=== PATIENT | male | born 1955 | race Caucasian/White ===

== ENCOUNTER 2020-09-20 08:27 | Outpatient (REF) | payer OTHER, SELFPAY ==
[2020-09-20 10:17] LABS: MANUAL DIFF FLAG NO
[2020-09-20 10:26] LABS: Basophils Absolute Auto 0.1 X10*3/uL (0.0-0.2); Basophils Percent Auto 0.6 % (0-2); Eosinophils Percent Auto 11.8 % (0-4); Hematocrit 48.4 % (42-52); Hemoglobin 16.1 g/dl (14.0-18.0); Imm Gran Abs Auto 0.05 X10*3/uL (0.00-0.03); Imm Gran Pct Auto 0.6 % (0.0-0.4); Mean Corpuscular HGB Conc 33.3 g/dl (31.0-36.0); Mean Corpuscular Hemoglobin 29.8 pg (27.0-33.0); Mean Corpuscular Volume 89.5 fL (80-98); Mean Platelet Volume 9.7 fL (9.4-12.4); Monocytes Absolute Auto 0.5 X10*3/uL (0.1-1.2); Monocytes Percent Auto 6.4 % (2-11); Neutrophils Absolute Auto 4.6 X10*3/uL (2.0-8.3); Neutrophils Percent Auto 56.6 % (45-73); Platelet Count 252 X10*3/uL (160-400); Red Blood Count 5.41 X10*6/uL (4.60-5.80); Red Cell Distribution Width 12.8 % (11.0-16.0); White Blood Count 8.1 X10*3/uL (4.8-10.8)
[2020-09-20 11:06] LABS: Alanine Aminotransferase 19 U/L (0-40); Albumin Level 4.3 g/dL (3.5-5.0); Alkaline Phosphatase 97 U/L (39-117); Anion Gap 13 (12-20); Aspartate Amino Transferase 14 U/L (5-37); Bilirubin Total 0.7 mg/dL (0.0-1.0); Blood Urea Nitrogen 10 mg/dL (9-16); Calcium 8.6 mg/dL (8.4-10.2); Carbon Dioxide 28 mmol/L (22-29); Chloride 101 mmol/L (96-108); Cholesterol 173 mg/dL; Estimated Glomerular Filt Rate > 60; Glucose Fasting 83 mg/dL (60-99); HDL Cholesterol 42 mg/dL; LDL Cholesterol Calculated 106 mg/dl; Potassium 4.5 mmol/l (3.3-5.1); Sodium 137 mmol/L (135-145); Triglycerides 128 mg/dL
[2020-09-20 11:28] LABS: Prostate Specific Antigen 3.32 ng/mL (<0.05-4.0)
== END 2020-09-20 08:28 | disposition home or self-care (01) ==
LOC: HO.10HDL 08:27
PROVIDERS: Visit Provider Internal Medicine Medical Oncology
DX: E78.2 Mixed hyperlipidemia (principal); R10.13 Epigastric pain; E66.9 Obesity, unspecified
CPT/HCPCS: 36415; 80053; 80061; 84153; 85025

== ENCOUNTER → 2020-11-13 13:58 | Outpatient (BNVA) | payer OTHER, SELFPAY | PROVIDERS: PCP Internal Medicine Medical Oncology; Visit Provider Orthopaedic Surgery | DX: M95.8 Other specified acquired deformities of musculoskeletal system (principal); M67.919 Unspecified disorder of synovium and tendon, unspecified shoulder | CPT/HCPCS: 20610; J1100 ==

== ENCOUNTER 2021-01-17 09:37 | Outpatient (REF) | payer OTHER, SELFPAY ==
[2021-01-17 10:05] LABS: MANUAL DIFF FLAG NO
[2021-01-17 10:17] LABS: Basophils Absolute Auto 0.1 X10*3/uL (0.0-0.2); Basophils Percent Auto 0.8 % (0-2); Eosinophils Absolute Auto 0.8 X10*3/uL (0.0-0.4); Eosinophils Percent Auto 11.5 % (0-4); Hematocrit 48.3 % (42-52); Imm Gran Abs Auto 0.03 X10*3/uL (0.00-0.03); Imm Gran Pct Auto 0.4 % (0.0-0.4); Lymphocytes Absolute Auto 1.6 X10*3/uL (1.2-4.9); Lymphocytes Percent Auto 22.9 % (20-40); Mean Corpuscular HGB Conc 33.1 g/dl (31.0-36.0); Mean Corpuscular Hemoglobin 28.9 pg (27.0-33.0); Mean Corpuscular Volume 87.2 fL (80-98); Monocytes Absolute Auto 0.5 X10*3/uL (0.1-1.2); Monocytes Percent Auto 7.1 % (2-11); Neutrophils Absolute Auto 4.1 X10*3/uL (2.0-8.3); Neutrophils Percent Auto 57.3 % (45-73); Platelet Count 239 X10*3/uL (160-400); Red Blood Count 5.54 X10*6/uL (4.60-5.80); Red Cell Distribution Width 12.9 % (11.0-16.0); White Blood Count 7.2 X10*3/uL (4.8-10.8)
[2021-01-17 10:57] LABS: Alanine Aminotransferase 21 U/L (0-40); Albumin Level 4.4 g/dL (3.5-5.0); Alkaline Phosphatase 96 U/L (39-117); Anion Gap 13 (12-20); Aspartate Amino Transferase 16 U/L (5-37); Bilirubin Total 1.2 mg/dL (0.0-1.0); Blood Urea Nitrogen 11 mg/dL (9-16); Carbon Dioxide 25 mmol/L (22-29); Chloride 105 mmol/L (96-108); Cholesterol 153 mg/dL; Estimated Glomerular Filt Rate 59; Glucose Fasting 89 mg/dL (60-99); HDL Cholesterol 39 mg/dL; LDL Cholesterol Calculated 93 mg/dl; Potassium 4.3 mmol/L (3.3-5.1); Sodium 139 mmol/L (135-145); Triglycerides 106 mg/dL
== END 2021-01-17 09:38 | disposition home or self-care (01) ==
LOC: HO.10HDL 09:37
PROVIDERS: Visit Provider Internal Medicine Medical Oncology
DX: J45.909 Unspecified asthma, uncomplicated (principal); E78.2 Mixed hyperlipidemia; K57.92 Diverticulitis of intestine, part unspecified, without perforation or abscess without bleeding
CPT/HCPCS: 36415; 80053; 80061; 85025

== ENCOUNTER 2021-05-16 09:35 | Outpatient (REF) | payer OTHER, SELFPAY ==
[2021-05-16 10:24] LABS: MANUAL DIFF FLAG NO
[2021-05-16 10:31] LABS: Basophils Percent Auto 0.4 % (0-2); Eosinophils Absolute Auto 0.7 X10*3/uL (0.0-0.4); Eosinophils Percent Auto 9.5 % (0-4); Hematocrit 47.3 % (42-52); Hemoglobin 15.8 g/dl (14.0-18.0); Imm Gran Abs Auto 0.02 X10*3/uL (0.00-0.03); Imm Gran Pct Auto 0.3 % (0.0-0.4); Lymphocytes Absolute Auto 1.5 X10*3/uL (1.2-4.9); Lymphocytes Percent Auto 19.7 % (20-40); Mean Corpuscular HGB Conc 33.4 g/dl (31.0-36.0); Mean Corpuscular Hemoglobin 29.8 pg (27.0-33.0); Mean Corpuscular Volume 89.1 fL (80-98); Mean Platelet Volume 10.4 fL (9.4-12.4); Monocytes Absolute Auto 0.6 X10*3/uL (0.1-1.2); Monocytes Percent Auto 7.5 % (2-11); Neutrophils Absolute Auto 4.7 X10*3/uL (2.0-8.3); Neutrophils Percent Auto 62.6 % (45-73); Platelet Count 238 X10*3/uL (160-400); Red Blood Count 5.31 X10*6/uL (4.60-5.80); Red Cell Distribution Width 13.2 % (11.0-16.0); White Blood Count 7.5 X10*3/uL (4.8-10.8)
[2021-05-16 10:53] LABS: Alanine Aminotransferase 17 U/L (0-40); Albumin Level 4.3 g/dL (3.5-5.0); Alkaline Phosphatase 92 U/L (39-117); Anion Gap 13 (12-20); Aspartate Amino Transferase 14 U/L (5-37); Bilirubin Total 0.8 mg/dL (0.0-1.0); Blood Urea Nitrogen 9 mg/dL (9-16); Calcium 9.4 mg/dL (8.4-10.2); Carbon Dioxide 26 mmol/L (22-29); Chloride 107 mmol/L (96-108); Cholesterol 148 mg/dL; Estimated Glomerular Filt Rate 53; Glucose Fasting 90 mg/dL (60-99); HDL Cholesterol 46 mg/dL; LDL Cholesterol Calculated 86 mg/dl; Potassium 4.5 mmol/L (3.3-5.1); Sodium 141 mmol/L (135-145); Total Protein 6.9 g/dL (6.5-8.0); Triglycerides 82 mg/dL
== END 2021-05-16 09:36 | disposition home or self-care (01) ==
LOC: HO.10HDL 09:35
PROVIDERS: PCP Internal Medicine Medical Oncology; Visit Provider Internal Medicine Medical Oncology
DX: J45.909 Unspecified asthma, uncomplicated (principal); R10.13 Epigastric pain; G47.30 Sleep apnea, unspecified; E78.2 Mixed hyperlipidemia; K57.92 Diverticulitis of intestine, part unspecified, without perforation or abscess without bleeding
CPT/HCPCS: 36415; 80053; 80061; 85025

== ENCOUNTER 2021-09-14 08:13 | Outpatient (REF) | payer OTHER, SELFPAY ==
[2021-09-14 10:13] LABS: MANUAL DIFF FLAG NO
[2021-09-14 10:17] LABS: Basophils Percent Auto 0.4 % (0-2); Eosinophils Absolute Auto 0.4 X10*3/uL (0.0-0.4); Eosinophils Percent Auto 5.3 % (0-4); Hematocrit 44.1 % (42.0-52.0); Hemoglobin 14.4 g/dl (14.0-18.0); Imm Gran Abs Auto 0.04 X10*3/uL (0.00-0.03); Imm Gran Pct Auto 0.5 % (0.0-0.4); Lymphocytes Absolute Auto 1.6 X10*3/uL (1.2-4.9); Lymphocytes Percent Auto 20.3 % (20-40); Mean Corpuscular HGB Conc 32.7 g/dl (31.0-36.0); Mean Corpuscular Hemoglobin 29.3 pg (27.0-33.0); Mean Corpuscular Volume 89.6 fL (80.0-98.0); Mean Platelet Volume 9.9 fL (9.4-12.4); Monocytes Absolute Auto 0.5 X10*3/uL (0.1-1.2); Monocytes Percent Auto 6.7 % (2-11); Neutrophils Absolute Auto 5.3 x10*3/uL (2.0-8.3); Neutrophils Percent Auto 66.8 % (45-73); Platelet Count 218 X10*3/uL (160-400); Red Blood Count 4.92 X10*6/uL (4.60-5.80); Red Cell Distribution Width 13.2 % (11.0-16.0); White Blood Count 7.9 X10*3/uL (4.8-10.8)
[2021-09-14 10:55] LABS: Alanine Aminotransferase 37 U/L (0-40); Albumin Level 4.1 g/dL (3.5-5.0); Alkaline Phosphatase 86 U/L (39-117); Anion Gap 12 (12-20); Aspartate Amino Transferase 19 U/L (5-37); Bilirubin Total 0.6 mg/dL (0.0-1.0); Blood Urea Nitrogen 15 mg/dL (9-16); Calcium 8.6 mg/dL (8.4-10.2); Carbon Dioxide 26 mmol/L (22-29); Chloride 106 mmol/L (96-108); Cholesterol 182 mg/dL; Estimated Glomerular Filt Rate > 60; Glucose Fasting 89 mg/dL (60-99); HDL Cholesterol 46 mg/dL; LDL Cholesterol Calculated 115 mg/dl; Potassium 3.7 mmol/L (3.3-5.1); Sodium 140 mmol/L (135-145); Total Protein 6.6 g/dL (6.5-8.0); Triglycerides 108 mg/dL
== END 2021-09-14 08:14 | disposition home or self-care (01) ==
LOC: HO.10HDL 08:13
PROVIDERS: Visit Provider Internal Medicine Medical Oncology
DX: E66.9 Obesity, unspecified (principal); E78.2 Mixed hyperlipidemia
CPT/HCPCS: 36415; 80053; 80061; 85025

== ENCOUNTER 2022-01-16 07:49 | Outpatient (REF) | payer OTHER, SELFPAY ==
[2022-01-16 10:24] LABS: MANUAL DIFF FLAG NO
[2022-01-16 10:27] LABS: Basophils Absolute Auto 0.1 X10*3/uL (0.0-0.2); Basophils Percent Auto 0.7 % (0-2); Eosinophils Percent Auto 13.8 % (0-4); Hemoglobin 15.7 g/dl (14.0-18.0); Imm Gran Abs Auto 0.02 X10*3/uL (0.00-0.03); Imm Gran Pct Auto 0.3 % (0.0-0.4); Lymphocytes Absolute Auto 1.5 X10*3/uL (1.2-4.9); Mean Corpuscular Hemoglobin 28.9 pg (27.0-33.0); Mean Corpuscular Volume 90.1 fL (80.0-98.0); Mean Platelet Volume 10.1 fL (9.4-12.4); Monocytes Absolute Auto 0.6 X10*3/uL (0.1-1.2); Monocytes Percent Auto 8.1 % (2-11); Neutrophils Absolute Auto 4.1 x10*3/uL (2.0-8.3); Neutrophils Percent Auto 57.1 % (45-73); Platelet Count 237 X10*3/uL (160-400); Red Blood Count 5.44 X10*6/uL (4.60-5.80); Red Cell Distribution Width 13.3 % (11.0-16.0); White Blood Count 7.3 X10*3/uL (4.8-10.8)
[2022-01-16 11:02] LABS: Alanine Aminotransferase 30 U/L (0-40); Albumin Level 4.3 g/dL (3.5-5.0); Alkaline Phosphatase 97 U/L (39-117); Anion Gap 14 (12-20); Aspartate Amino Transferase 17 U/L (5-37); Bilirubin Total 0.5 mg/dL (0.0-1.0); Blood Urea Nitrogen 12 mg/dL (9-16); Calcium 9.4 mg/dL (8.4-10.2); Carbon Dioxide 27 mmol/L (22-29); Chloride 105 mmol/L (96-108); Cholesterol 149 mg/dL; Estimated Glomerular Filt Rate 53; Glucose Fasting 82 mg/dL (60-99); HDL Cholesterol 42 mg/dL; LDL Cholesterol Calculated 92 mg/dl; Potassium 4.9 mmol/L (3.3-5.1); Sodium 141 mmol/L (135-145); Triglycerides 79 mg/dL
[2022-01-17 15:34] LABS: PSA,Total (Free>4and<10) 2.43 ng/mL (0.00-4.00)
== END 2022-01-16 07:50 | disposition home or self-care (01) ==
LOC: HO.10HDL 07:49
PROVIDERS: Visit Provider Internal Medicine Medical Oncology
DX: E78.2 Mixed hyperlipidemia (principal); E66.9 Obesity, unspecified; N40.0 Benign prostatic hyperplasia without lower urinary tract symptoms; Z12.5 Encounter for screening for malignant neoplasm of prostate
CPT/HCPCS: 36415; 80053; 80061; 84153; 85025

== ENCOUNTER 2022-06-12 08:14 | Outpatient (REF) | payer OTHER, SELFPAY ==
[2022-06-12 10:51] LABS: MANUAL DIFF FLAG NO
[2022-06-12 11:02] LABS: Basophils Absolute Auto 0.1 X10*3/uL (0.0-0.2); Basophils Percent Auto 0.8 % (0-2); Eosinophils Absolute Auto 0.7 X10*3/uL (0.0-0.4); Eosinophils Percent Auto 10.8 % (0-4); Hematocrit 48.2 % (42.0-52.0); Hemoglobin 15.9 g/dl (14.0-18.0); Imm Gran Abs Auto 0.03 X10*3/uL (0.00-0.03); Imm Gran Pct Auto 0.5 % (0.0-0.4); Lymphocytes Absolute Auto 1.6 X10*3/uL (1.2-4.9); Lymphocytes Percent Auto 23.6 % (20-40); Mean Corpuscular Hemoglobin 29.5 pg (27.0-33.0); Mean Corpuscular Volume 89.4 fL (80.0-98.0); Mean Platelet Volume 10.4 fL (9.4-12.4); Monocytes Absolute Auto 0.6 X10*3/uL (0.1-1.2); Monocytes Percent Auto 8.3 % (2-11); Neutrophils Absolute Auto 3.7 x10*3/uL (2.0-8.3); Platelet Count 207 X10*3/uL (160-400); Red Blood Count 5.39 X10*6/uL (4.60-5.80); Red Cell Distribution Width 13.8 % (11.0-16.0); White Blood Count 6.7 X10*3/uL (4.8-10.8)
[2022-06-12 11:13] LABS: Alanine Aminotransferase 20 U/L (0-40); Albumin Level 4.3 g/dL (3.5-5.0); Alkaline Phosphatase 98 U/L (39-117); Anion Gap 14 (12-20); Aspartate Amino Transferase 15 U/L (5-37); Bilirubin Total 0.7 mg/dL (0.0-1.0); Blood Urea Nitrogen 10 mg/dL (9-16); Carbon Dioxide 26 mmol/L (22-29); Chloride 105 mmol/L (96-108); Cholesterol 182 mg/dL; Estimated Glomerular Filt Rate > 60; Glucose Fasting 90 mg/dL (60-99); HDL Cholesterol 45 mg/dL; LDL Cholesterol Calculated 117 mg/dl; Potassium 4.4 mmol/L (3.3-5.1); Sodium 141 mmol/L (135-145); Triglycerides 101 mg/dL
[2022-06-12 11:34] LABS: Prostate Specific Antigen 2.59 ng/mL (<0.05-4.0)
== END 2022-06-12 08:15 | disposition home or self-care (01) ==
LOC: HO.10HDL 08:14
PROVIDERS: Visit Provider Internal Medicine Medical Oncology
DX: Z12.5 Encounter for screening for malignant neoplasm of prostate (principal); E78.2 Mixed hyperlipidemia; E66.9 Obesity, unspecified; N40.0 Benign prostatic hyperplasia without lower urinary tract symptoms
CPT/HCPCS: 36415; 80053; 80061; 84153; 85025

== ENCOUNTER 2023-01-03 08:01 | Outpatient (REF) | payer OTHER, SELFPAY ==
[2023-01-03 11:16] LABS: MANUAL DIFF FLAG NO
[2023-01-03 11:55] LABS: Basophils Absolute Auto 0.1 X10*3/uL (0.0-0.2); Basophils Percent Auto 0.7 % (0-2); Eosinophils Absolute Auto 0.8 X10*3/uL (0.0-0.4); Eosinophils Percent Auto 9.3 % (0-4); Hemoglobin 14.9 g/dl (14.0-18.0); Imm Gran Abs Auto 0.03 X10*3/uL (0.00-0.03); Imm Gran Pct Auto 0.3 % (0.0-0.4); Lymphocytes Absolute Auto 2.1 X10*3/uL (1.2-4.9); Lymphocytes Percent Auto 24.5 % (20-40); Mean Corpuscular HGB Conc 32.4 g/dl (31.0-36.0); Mean Corpuscular Hemoglobin 29.2 pg (27.0-33.0); Mean Corpuscular Volume 90.2 fL (80.0-98.0); Mean Platelet Volume 10.4 fL (9.4-12.4); Monocytes Absolute Auto 0.7 X10*3/uL (0.1-1.2); Monocytes Percent Auto 7.5 % (2-11); Neutrophils Percent Auto 57.7 % (45-73); Platelet Count 212 X10*3/uL (160-400); Red Cell Distribution Width 13.5 % (11.0-16.0); White Blood Count 8.7 X10*3/uL (4.8-10.8)
[2023-01-03 12:41] LABS: Alanine Aminotransferase 20 U/L (0-40); Albumin Level 3.9 g/dL (3.5-5.0); Alkaline Phosphatase 81 U/L (39-117); Anion Gap 12 (12-20); Aspartate Amino Transferase 12 U/L (5-37); Bilirubin Total 0.8 mg/dL (0.0-1.0); Blood Urea Nitrogen 13 mg/dL (9-16); Calcium 8.7 mg/dL (8.4-10.2); Carbon Dioxide 29 mmol/L (22-29); Chloride 105 mmol/L (96-108); Cholesterol 158 mg/dL; Estimated Glomerular Filt Rate > 60; Glucose Fasting 76 mg/dL (60-99); HDL Cholesterol 49 mg/dL; LDL Cholesterol Calculated 89 mg/dl; Potassium 3.9 mmol/L (3.3-5.1); Prostate Specific Antigen 3.14 ng/mL (<0.05-4.0); Sodium 142 mmol/L (135-145); Total Protein 6.2 g/dL (6.5-8.0); Triglycerides 101 mg/dL
== END 2023-01-03 08:02 | disposition home or self-care (01) ==
LOC: HO.10HDL 08:01
PROVIDERS: Visit Provider Internal Medicine Medical Oncology
DX: Z13.89 Encounter for screening for other disorder (principal)
CPT/HCPCS: 36415; 80053; 80061; 84153; 85025

== ENCOUNTER 2023-09-11 07:57 | Outpatient (REF) | payer OTHER, SELFPAY ==
[2023-09-11 10:33] LABS: MANUAL DIFF FLAG NO
[2023-09-11 10:38] LABS: Basophils Absolute Auto 0.1 X10*3/uL (0.0-0.2); Basophils Percent Auto 0.6 % (0-2); Eosinophils Absolute Auto 0.4 X10*3/uL (0.0-0.4); Eosinophils Percent Auto 4.9 % (0-4); Hematocrit 47.5 % (42.0-52.0); Hemoglobin 15.3 g/dl (14.0-18.0); Imm Gran Abs Auto 0.02 X10*3/uL (0.00-0.03); Imm Gran Pct Auto 0.3 % (0.0-0.4); Lymphocytes Absolute Auto 1.9 X10*3/uL (1.2-4.9); Mean Corpuscular HGB Conc 32.2 g/dl (31.0-36.0); Mean Corpuscular Hemoglobin 28.7 pg (27.0-33.0); Mean Corpuscular Volume 89.1 fL (80.0-98.0); Mean Platelet Volume 9.9 fL (9.4-12.4); Monocytes Absolute Auto 0.6 X10*3/uL (0.1-1.2); Monocytes Percent Auto 7.3 % (2-11); Neutrophils Percent Auto 62.9 % (45-73); Platelet Count 251 X10*3/uL (160-400); Red Blood Count 5.33 X10*6/uL (4.60-5.80); Red Cell Distribution Width 13.6 % (11.0-16.0); White Blood Count 7.9 X10*3/uL (4.8-10.8)
[2023-09-11 10:52] LABS: Alanine Aminotransferase 15 U/L (0-40); Albumin Level 4.2 g/dL (3.5-5.0); Alkaline Phosphatase 99 U/L (39-117); Anion Gap 11 (12-20); Aspartate Amino Transferase 12 U/L (5-37); Bilirubin Total 0.8 mg/dL (0.0-1.0); Blood Urea Nitrogen 11 mg/dL (9-16); Calcium 9.4 mg/dL (8.4-10.2); Carbon Dioxide 30 mmol/L (22-29); Chloride 104 mmol/L (96-108); Cholesterol 171 mg/dL (<200); Estimated Glomerular Filt Rate > 60; Glucose Fasting 85 mg/dL (60-99); HDL Cholesterol 42 mg/dL (>40); LDL Cholesterol Calculated 107 mg/dL (<100); Potassium 4.4 mmol/L (3.3-5.1); Sodium 141 mmol/L (135-145); Total Protein 7.4 g/dL (6.5-8.0); Triglycerides 111 mg/dL (<150)
== END 2023-09-11 07:58 | disposition home or self-care (01) ==
LOC: HO.10HDL 07:57
PROVIDERS: Visit Provider Internal Medicine Medical Oncology
DX: E78.2 Mixed hyperlipidemia (principal); E66.9 Obesity, unspecified
CPT/HCPCS: 36415; 80053; 80061; 85025

== ENCOUNTER 2024-01-22 09:43 | Outpatient (REF) | payer MEDICARE, SELFPAY ==
[2024-01-22 11:05] LABS: MANUAL DIFF FLAG NO
[2024-01-22 11:15] LABS: Basophils Absolute Auto 0.1 X10*3/uL (0.0-0.2); Basophils Percent Auto 0.8 % (0-2); Eosinophils Absolute Auto 0.5 X10*3/uL (0.0-0.4); Eosinophils Percent Auto 6.6 % (0-4); Hemoglobin 16.1 g/dl (14.0-18.0); Imm Gran Abs Auto 0.03 X10*3/uL (0.00-0.03); Imm Gran Pct Auto 0.4 % (0.0-0.4); Lymphocytes Absolute Auto 1.7 X10*3/uL (1.2-4.9); Lymphocytes Percent Auto 21.8 % (20-40); Mean Corpuscular HGB Conc 34.3 g/dl (31.0-36.0); Mean Corpuscular Hemoglobin 29.2 pg (27.0-33.0); Mean Corpuscular Volume 85.1 fL (80.0-98.0); Mean Platelet Volume 9.7 fL (9.4-12.4); Monocytes Absolute Auto 0.6 X10*3/uL (0.1-1.2); Monocytes Percent Auto 7.6 % (2-11); Neutrophils Absolute Auto 4.9 x10*3/uL (2.0-8.3); Neutrophils Percent Auto 62.8 % (45-73); Platelet Count 272 X10*3/uL (160-400); Red Blood Count 5.52 X10*6/uL (4.60-5.80); Red Cell Distribution Width 12.7 % (11.0-16.0); White Blood Count 7.8 X10*3/uL (4.8-10.8)
[2024-01-22 11:22] LABS: Alanine Aminotransferase 18 U/L (0-40); Albumin Level 4.3 g/dL (3.5-5.0); Alkaline Phosphatase 105 U/L (39-117); Anion Gap 16 (12-20); Aspartate Amino Transferase 14 U/L (5-37); Bilirubin Total 0.7 mg/dL (0.0-1.0); Blood Urea Nitrogen 14 mg/dL (9-16); Calcium 9.4 mg/dL (8.4-10.2); Carbon Dioxide 23 mmol/L (22-29); Chloride 105 mmol/L (96-108); Cholesterol 172 mg/dL (<200); Estimated Glomerular Filt Rate > 60; Glucose Fasting 103 mg/dL (60-99); HDL Cholesterol 48 mg/dL (>40); LDL Cholesterol Calculated 104 mg/dL (<100); Potassium 4.2 mmol/L (3.3-5.1); Sodium 140 mmol/L (135-145); Total Protein 7.5 g/dL (6.5-8.0); Triglycerides 100 mg/dL (<150)
[2024-01-22 11:38] LABS: Prostate Specific Antigen 3.08 ng/mL (<0.05-4.0)
== END 2024-01-22 09:44 | disposition home or self-care (01) ==
LOC: HO.10HDL 09:43
PROVIDERS: Visit Provider Internal Medicine Medical Oncology
DX: Z00.00 Encounter for general adult medical examination without abnormal findings (principal); Z12.5 Encounter for screening for malignant neoplasm of prostate; G47.30 Sleep apnea, unspecified; E78.2 Mixed hyperlipidemia; N40.0 Benign prostatic hyperplasia without lower urinary tract symptoms
CPT/HCPCS: 36415; 80053; 80061; 84153; 85025

== ENCOUNTER 2024-05-31 08:07 | Outpatient (REF) | payer MEDICARE, SELFPAY ==
[2024-05-31 10:46] LABS: MANUAL DIFF FLAG NO
[2024-05-31 10:51] LABS: Basophils Percent Auto 0.5 % (0-2); Hematocrit 42.5 % (42.0-52.0); Hemoglobin 14.6 g/dl (14.0-18.0); Imm Gran Abs Auto 0.02 X10*3/uL (0.00-0.03); Imm Gran Pct Auto 0.3 % (0.0-0.4); Lymphocytes Absolute Auto 1.3 X10*3/uL (1.2-4.9); Mean Corpuscular HGB Conc 34.4 g/dl (31.0-36.0); Mean Corpuscular Hemoglobin 29.9 pg (27.0-33.0); Mean Corpuscular Volume 86.9 fL (80.0-98.0); Mean Platelet Volume 9.9 fL (9.4-12.4); Monocytes Absolute Auto 0.6 X10*3/uL (0.1-1.2); Monocytes Percent Auto 7.3 % (2-11); Neutrophils Absolute Auto 4.7 x10*3/uL (2.0-8.3); Neutrophils Percent Auto 61.9 % (45-73); Platelet Count 193 X10*3/uL (160-400); Red Blood Count 4.89 X10*6/uL (4.60-5.80); Red Cell Distribution Width 14.1 % (11.0-16.0); White Blood Count 7.6 X10*3/uL (4.8-10.8)
[2024-05-31 11:14] LABS: Alanine Aminotransferase 13 U/L (0-40); Albumin Level 4.1 g/dL (3.5-5.0); Alkaline Phosphatase 96 U/L (39-117); Anion Gap 12 (12-20); Aspartate Amino Transferase 11 U/L (5-37); Bilirubin Total 0.5 mg/dL (0.0-1.0); Blood Urea Nitrogen 12 mg/dL (9-16); Calcium 9.3 mg/dL (8.4-10.2); Carbon Dioxide 25 mmol/L (22-29); Chloride 107 mmol/L (96-108); Cholesterol 142 mg/dL (<200); Estimated Glomerular Filt Rate > 60; Glucose Fasting 92 mg/dL (60-99); HDL Cholesterol 52 mg/dL (>40); LDL Cholesterol Calculated 78 mg/dL (<100); Potassium 4.1 mmol/L (3.3-5.1); Sodium 140 mmol/L (135-145); Triglycerides 64 mg/dL (<150)
[2024-05-31 11:22] LABS: Prostate Specific Antigen 2.48 ng/mL (<0.05-4.0)
== END 2024-05-31 08:08 | disposition home or self-care (01) ==
LOC: HO.10HDL 08:07
PROVIDERS: Visit Provider Internal Medicine Medical Oncology
DX: Z12.5 Encounter for screening for malignant neoplasm of prostate (principal); N40.0 Benign prostatic hyperplasia without lower urinary tract symptoms; E78.2 Mixed hyperlipidemia
CPT/HCPCS: 36415; 80053; 80061; 84153; 85025

== ENCOUNTER 2024-09-14 08:45 | Outpatient (REF) | payer MEDICARE, SELFPAY ==
[2024-09-14 10:55] LABS: MANUAL DIFF FLAG NO
[2024-09-14 11:21] LABS: Basophils Percent Auto 0.4 % (0-2); Eosinophils Absolute Auto 0.1 X10*3/uL (0.0-0.4); Eosinophils Percent Auto 1.9 % (0-4); Hematocrit 47.4 % (42.0-52.0); Hemoglobin 15.6 g/dl (14.0-18.0); Imm Gran Abs Auto 0.04 X10*3/uL (0.00-0.03); Imm Gran Pct Auto 0.5 % (0.0-0.4); Lymphocytes Absolute Auto 1.9 X10*3/uL (1.2-4.9); Mean Corpuscular HGB Conc 32.9 g/dl (31.0-36.0); Mean Corpuscular Hemoglobin 28.7 pg (27.0-33.0); Mean Corpuscular Volume 87.3 fL (80.0-98.0); Mean Platelet Volume 9.7 fL (9.4-12.4); Monocytes Absolute Auto 0.6 X10*3/uL (0.1-1.2); Monocytes Percent Auto 7.8 % (2-11); Neutrophils Absolute Auto 4.6 x10*3/uL (2.0-8.3); Neutrophils Percent Auto 63.4 % (45-73); Platelet Count 239 X10*3/uL (160-400); Red Blood Count 5.43 X10*6/uL (4.60-5.80); Red Cell Distribution Width 13.9 % (11.0-16.0); White Blood Count 7.3 X10*3/uL (4.8-10.8)
[2024-09-14 11:29] LABS: Alanine Aminotransferase 23 U/L (0-40); Albumin Level 4.2 g/dL (3.5-5.0); Alkaline Phosphatase 87 U/L (39-117); Anion Gap 9 (12-20); Aspartate Amino Transferase 17 U/L (5-37); Bilirubin Total 0.8 mg/dL (0.0-1.0); Blood Urea Nitrogen 11 mg/dL (9-16); Calcium 8.9 mg/dL (8.4-10.2); Carbon Dioxide 30 mmol/L (22-29); Chloride 106 mmol/L (96-108); Cholesterol 158 mg/dL (<200); Estimated Glomerular Filt Rate > 60; Glucose Fasting 92 mg/dL (60-99); HDL Cholesterol 52 mg/dL (>40); LDL Cholesterol Calculated 88 mg/dL (<100); Potassium 4.1 mmol/L (3.3-5.1); Sodium 141 mmol/L (135-145); Total Protein 7.1 g/dL (6.5-8.0); Triglycerides 91 mg/dL (<150)
[2024-09-14 11:51] LABS: Prostate Specific Antigen 3.64 ng/mL (<0.05-4.0)
== END 2024-09-14 08:46 | disposition home or self-care (01) ==
LOC: HO.10HDL 08:45
PROVIDERS: Visit Provider Internal Medicine Medical Oncology
DX: Z12.5 Encounter for screening for malignant neoplasm of prostate (principal); E78.2 Mixed hyperlipidemia; E66.9 Obesity, unspecified; N40.0 Benign prostatic hyperplasia without lower urinary tract symptoms
CPT/HCPCS: 36415; 80053; 80061; 84153; 85025

== ENCOUNTER 2025-05-17 08:24 | Outpatient (REF) | payer MEDICARE, SELFPAY ==
--- OUTSIDE RECORDS SUMMARY | 2025-01-17 11:15 | XMS_ITS ---
Author Organization Carlton Alonzo III, MD Address [address] [place] [address] [place] [address] Care Team Providers Care Care Advocate Name Role Phone Carlton Alonzo Primary Care Provider Allergies Allergen (clinical drug ingredient) Drug/Non Drug Allergy documented on EMR Reaction Allergy Type Onset Date Status Dust Mites Unknown Allergy Active Dog dander Dog Dander Unknown Allergy Active Cat dander Cat Dander Unknown Allergy Active REASON FOR VISIT Annual Exam Medications Medication SIG (Take, Route, Frequency, Duration) Notes Start Date End Date Status Triamcinolone Acetonide 0.1 % 1 application Externally Two times a day for 90 days 01/17/2025 Active Simvastatin 40 MG take 1 tablet by amadou th in the evening once daily Orally Once a day Active Wixela Inhub 250-50 MCG/ACT 1 puff Inhal ation Twice a day 02/20/2024 Active Albuterol Sulfate HFA 108 (90 Base) MCG/ACT 1 puff as needed Inhalation every 4 hrs 01/21/2023 Active Social History Tobacco Use: Social History Observation Description Date Details (start date - stop date) Never Smoker NA - NA Sex Assigned At : Social History Observation Description Sex Assigned At Male Tobacco Control (Standard) Question Answer Notes Tobacco use: Nonsmoker Additional Findings: Tobacco non-user Aggressive nonsmoker AUDIT-C (Standard) Question Answer Notes Did you have a drink contain ing alcohol in the past year? Yes How often did you have six o r more drinks on one occasion in the past year? 2 to 4 times a month (2 points) How many drinks did you have on a typical day when you were drinking in the past year? 1 or 2 drinks (0 point) How often did you have a dri nk containing alcohol in the past year? Never (0 point) Points 2 Interpretation Negative Vital Signs Temperature 97.7 degrees Fahrenheit 01/18/20 25 Blood pressure systolic 126 mm Hg 01/18/20 25 Blood pressure diastolic 74 mm Hg 025 Heart Rate 60 /min 01/17/2025 Height 68 in 01/17/2025 Weight 211 lbs 01/17/2025 BMI 32.08 kg/m2 01/17/2025 Encounters Encounter Location Date Provider Diagnosis Carlton Alonzo III, MD [address] [place] [address] DR [place], [place] [address] 01/17/2025 Carlton Alonzo Sleep apnea, unspeci fied type G47.30 ; Obesity (BMI 30.0-34.9) E66.9 ; BPH (benign prostatic hyperplasia) N40.0 ; Psoriasis L40.9 ; Mixed hyperlipidemia E78.2 and Moderate asthma without complication, unspecified whether persistent J45.909 Assessments Encounter Date Diagnosis (ICD Code) Assessment Notes Treat ment Notes Treatment Clinical Notes 01/17/2025 Sleep apnea, unspecified type (ICD-10 - G47.30) He says he is no longer using his CPAP as he doesn't think it is effective. He denies any snoring or daytime somnolence. 01/17/2025 Obesity (BMI 30.0-34.9) (ICD-10 - E66.9) His weight is stable. We reviewed his diet and nutrition and weight loss strategy. We made a plan to lose weight at a rate of one half of a pound per week. 01/17/2025 BPH (benign prostati c hyperplasia) (ICD-10 - N40.0) He arises from sleep about once a night. We have discussed lifestyle modifications he could make to reduce his nocturia. 01/17/2025 Psoriasis (ICD-10 - L40.9) His psoriasis is mild and controlled with topical medications. No change in his regimen as needed.I have given him triamcinolone. 01/17/2025 Mixed hyperlipidemia (ICD-10 - E78.2) His lipids are in the target range. I recommended a healthy Mediterranean diet and regular physical activity combined with weight loss. 01/17/2025 Moderate asthma without complication, unspecified whether persistent (ICD-10 - J45.909) He is breathing comfortably today without wheezing. He is compliant with all his medications. Plan Of Treatment Medication Medication Name Sig Start Date Stop Date Notes Triamcinolone Acetonide 0.1 % 1 applicat ion Externally Two times a day for 90 days 01/17/2025 Simvastatin 40 MG take 1 tablet by amadou th in the evening once daily Orally Once a day Wixela Inhub 250-50 MCG/ACT 1 puff Inhal ation Twice a day 02/20/2024 Albuterol Sulfate HFA 108 (9 0 Base) MCG/ACT 1 puff as needed Inhalation every 4 hrs 01/21/2023 Pending Test Test Name Order Date PROFILE, FASTING (COMPREHENSIVE METABOLI C) 01/17/2025 PSA, TOTAL 01/17/2025 CBC w DIFF 01/17/2025 Lipid Panel 01/17/2025 Next Appt Details Follow Up: 4 Months, Reason: ov review labs Provider Name:Carlton Alonzo, 05/23/2025 03:00:00 PM, [address] [place] [address] [address], [place], [address], Provider Name:Carlton Alonzo, 01/18/2026 02:30:00 PM, [address] [place] [address] [address], [place], [address], Progress Notes * Darvin ARTHUR HDOB: [birth year] (69 yo M)Acc No.[id number]:01/17/2025 Progress Notes Patient: Janet BABCOCKMATHEUSDarvin Provider: Kirill Alonzo MD :1955 A ge:69 Y S ex:Male Date:01/17/2025 Address:[address] [place], [place] [id number] Subjective: * Chief Complaints: * A nnual Exam * HPI: D epression Screening: He returns to the office at the age of 69, for his annual physical examination.Since his last visit he has been well and has no new complaints. He has received several injections in the left wrist and right thumb for arthritis with some relief of pain. He has a skin today on his medial upper right thigh which is irritated by his clothing. I offered to send him to dermatology to have it removed but the decided not to do that at this time. He does not have a CPAP machine and does not want one. He arises from sleep 2 times a night to urinate. He is caring for his who is currently receiving chemotherapy and radiation for non-small cell lung cancer. PHQ-9 L ittle interest or pleasure in doing things?Not at all F eeling down, depressed, or hopeless N ot at all T rouble falling or staying asleep, or sleeping too much N ot at all F eeling tired or having little energy N ot at all P oor appetite or overeating N ot at all F eeling bad about yourself or that you are a failure, or have let yourself or your family down N ot at all T rouble concentrating on things, such as reading the newspaper or watching television N ot at all M oving or speaking so slowly that other people could have noticed; or the opposite, being so fidgety or restless that you have been moving around a lot more than usual N ot at all T houghts that you would be better off or of hurting yourself in some way N ot at all T otal Score 0 C OVID-19 Screening: Questions H ave you had any new onset fever, chills, cough, congestion, sore throat, shortness of breath, muscle aches? N o S NASIR Questions: SDOH Questions I n the past year have you been worried about losing your housing? N o I n the past year have you or any family members you live with been unable to get any of the following when it was really needed? Check all that apply: N one F all Risk Screening: Fall History H ave you had any falls with injury in the past year? N o H ave you had two or more falls in the past year? N o F all Risk Assessment: N o falls in the past year * ROS: G eneral/Constitutional: pain F ingers and wrists. C hills d enies. F atigue a dmits. F ever d enies. E NT: Decreased hearing d enies. R espiratory: Cough d enies. C ardiovascular: Chest pain with exertion d enies. D yspnea on exertion?denies. S hortness of breath d enies. G astrointestinal: Constipation o ccasional. D ecreased appetite d enies. D iarrhea d enies. H eartburn d enies. N ausea d enies. R ectal bleeding d enies. V omiting d enies. H ematology: bruising d enies. p etechiae d enies. S wollen glands n one have been noted. G enitourinary: Frequent urination d enies. M usculoskeletal: Muscle aches d enies. P ainful joints d enies. S ciatica d enies. W eakness d enies. S kin: Itching d enies. R vineet d enies. S kin lesion(s)?Mild to moderate psoriasis mostly on his back, skin take upper medial right thigh. ? N eurologic: Difficulty speaking d enies. D izziness d enies.?Headache d enies. L ow back pain d enies. P sychiatric: Depressed mood d enies. * Medical History: * Surgical History: v asectomy 2002appendectomy Tonsillectommy fractured left tibia and fibula 2004colonoscopy, [facility] left cataract surgery 10/2021 * Hospitalization/Major Diagno stic Procedure: D enies Past Hospitalization * Family History: F ather: 85 yrs, Dementia, diabetes, hyperlipidemia, diagnosed with Cancer, DM. M other: alive 88 yrs, Dementia, lives at the [facility] in [place], diagnosed with HTN. 1 brother(s) , 1 sister(s) - healthy. 2 daughter(s) - healthy. . His father is and had skin cancer. His mother has hypertension and dementia. He has 2 healthy daughters. He is not aware of any family history of mental illness or substance use disorder or addiction. * Social History: T obacco Use: T obacco Control (Standard) T obacco use: N onsmoker A dditional Findings: Tobacco non-user A ggressive nonsmoker D rugs/Alcohol: D rugs H ave you used drugs other than those for medical reasons in the past 12 months? N o D rug/Alcohol: A AIMEE-C (Standard) D id you have a drink containing alcohol in the past year? Y es H ow often did you have six or more drinks on one occasion in the past year? 2 to 4 times a month (2 points) H ow many drinks did you have on a typical day when you were drinking in the past year? 1 or 2 drinks (0 point) H ow often did you have a drink containing alcohol in the past year? N ever (0 point) P oints 2 I nterpretation N egative H lavell was born and [place], [place]. He has been to for 23 years. They have 2 daughters who are alive and well and 6 grandchildren who are healthy. 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 He has no toxic exposures. He works 40 hours a week. * Medications: T akingAlbuterol Sulfate HFA 108 (90 Base) MCG/ACT Aerosol Solution 1 puff as needed Inhalation every 4 hrs Wixela Inhub 250-50 MCG/ACT Aerosol Powder Breath Activated 1 puff Inhalation Twice a day Simvastatin 40 MG Tablet take 1 tablet by mouth in the evening once daily Orally Once a day Taking Albuterol Sulfate HFA 108 (90 Base) MCG/ACT Aerosol Solution 1 puff as needed Inhalation every 4 hrs Taking Wixela Inhub 250-50 MCG/ACT Aerosol Powder Breath Activated 1 puff Inhalation Twice a day Taking Simvastatin 40 MG Tablet take 1 tablet by mouth in the evening once daily Orally Once a day DiscontinuedSymbicort 160-4.5 MCG/ACT Aerosol use 2 inhalations by mouth twice daily Inhalation twice a day Medication List reviewed and reconciled with the patientDiscontinued Symbicort 160-4.5 MCG/ACT Aerosol use 2 inhalations by mouth twice daily Inhalation twice a day Medication List reviewed and reconciled with the patient * Allergies: D ust MitesDog DanderCat Danderno[Allergies Verified] Objective: * Vitals: H t: 68, Wt:211, BMI:32.08, BP:126/74, HR:60, Temp:97.7, Wt-k.71. * Examination: G eneral Examination: GENERAL APPEARANCE: p leasant, well nourished, well developed, in no acute distress, calm and relaxed, obese, man. HEAD: a traumatic, normocephalic. EYES: e sheyla, perrla, anicteric, conjugate. EARS: n ormal. NOSE: s eptum intact. ORAL CAVITY: n ormal, unremarkable. NECK/THYROID: n o jugular venous distention, no carotid bruit, thyroid normal. LYMPH NODES: n o enlarged lymph nodes,spleen normal. SKIN: n o suspicious lesions, anicteric, Benign-appearing skin tag upper right medial thigh without erythema. HEART: n o clicks, gallops, murmurs, or rubs, regular rhythm, S1, S2 normal, no s3, or vascular bruits. LUNGS: c lear to auscultation . BREASTS: no masses palpable bilaterally. ABDOMEN: b owel sounds normal, no ascites, no organomegaly, no mass, centripital obesity. RECTAL EXAM: , normal tone, no external hemorrhoids, no masses palpable, no melena, no red blood, prostate 1+ No nodules. MUSCULOSKELETAL: e xtremities unremarkable, no clubbing, cyanosis or edema, No muscle spasm around the lumbar spine with normal range of motion. PERIPHERAL PULSES: n ormal. NEUROLOGIC: a lert and oriented, cranial nerves 2-12 grossly intact, deep tendon reflexes 2+ symmetrical, motor strength normal upper and lower extremities, sensory exam intact. PSYCH: a lert, oriented, cognitive function intact, thought process logical, goal directed, speech clear, c ooperative with exam. Assessment: * Assessment: 1. S leep apnea, unspecified type - G47.30 (Primary) N otes :He says he is no longer using his CPAP as he doesn't think it is effective. He denies any snoring or daytime somnolence. 2 . O besity (BMI 30.0-34.9) - E66.9 N otes :His weight is stable. We reviewed his diet and nutrition and weight loss strategy. We made a plan to lose weight at a rate of one half of a pound per week. 3 . B PH (benign prostatic hyperplasia) - N40.0 N otes :He arises from sleep about once a night. We have discussed lifestyle modifications he could make to reduce his nocturia. 4 . P soriasis - L40.9 N otes :His psoriasis is mild and controlled with topical medications. No change in his regimen as needed.I have given him triamcinolone. 5 . M ixed hyperlipidemia - E78.2 N otes :His lipids are in the target range. I recommended a healthy Mediterranean diet and regular physical activity combined with weight loss. 6 . M oderate asthma without complication, unspecified whether persistent - J45.909 N otes :He is breathing comfortably today without wheezing. He is compliant with all his medications. Plan: * Treatment: 2. O besity (BMI 30.0-34.9) L AB: PROFILE, FASTING (COMPREHENSIVE METABOLIC) L AB: PSA, TOTAL L AB: CBC w DIFF L AB: Lipid Panel 3. B PH (benign prostatic hyperplasia) L AB: PROFILE, FASTING (COMPREHENSIVE METABOLIC) L AB: PSA, TOTAL L AB: CBC w DIFF L AB: Lipid Panel 4. O thers Continue Wixela Inhub Aerosol Powder Breath Activated, 250-50 MCG/ACT, 1 puff, Inhalation, Twice a day; C ontinue Simvastatin Tablet, 40 MG, take 1 tablet by mouth in the evening once daily, Orally, Once a day. * Procedure Codes: * Preventive Medicine: Counseling: C are goal follow-up plan: Counseling for abnormal BMI given Y es Above Normal BMI Follow-up D ietary management education, guidance, and counseling, Dietary needs education, Exercise promotion: strength training, Exercise promotion: stretching, Feeding regime, Giving encouragement to exercise, Lifestyle education regarding diet, Nutrition / feeding management, Nutrition therapy, Prescribed activity/exercise education, Prescribed diet education, Prescribed dietary intake, Special diet education, Weight monitoring , Intervention, Order not done: Medical or Other reason not done * Follow Up: 4 Months (Reason: ov review labs) * Images: * Sign off status: Completed true * Provider: Kirill Alonzo MD Date: 0 01/17/2025 Generated for Raman wagner/Iain/Rocioitting on: 0 05/17/2025 08:36 AM EDT History and Physical Notes * HPI (History of Present Illness) Category Sub-Category Detail Notes Depression Screening PHQ-9 Little inte rest or pleasure in doing things: Not at all Feeling down, depressed, or hopeless: No t at all Trouble falling or staying asleep, or sl eeping too much: Not at all Feeling tired or having little energy: N ot at all Poor appetite or overeating: Not at all Feeling bad about yourself o r that you are a failure, or have let yourself or your family down: Not at all Trouble concentrating on thi ngs, such as reading the newspaper or watching television: Not at all Moving or speaking so slowly that other people could have noticed; or the opposite, being so fidgety or restless that you have been moving around a lot more than usual: Not at all Thoughts that you would be b dima off or of hurting yourself in some way: Not at all Total Score: 0 Fall Risk Screening Fall History Have you had any falls with injury in the past year?: No Have you had two or more falls in the year?: No Fall Risk Assessment:: No falls in the year COVID-19 Screening Questions Have you had any new onset fever, chills, cough, congestion, sore throat, shortness of breath, muscle aches?: No SDOH Questions SDOH Questions In the past year have you been worried about losing your housing?: No In the past year have you or any family members you live with been unable to get any of the following when it was really needed? Check all that apply:: None Examination Category Sub-Category Detail Notes General Examination GENERAL APPEARANCE: pleasant , well nourished, well developed, in no acute distress, calm and relaxed, obese, man HEAD: atraumatic, normocep halic EYES: eomi, perrla, anicte desire, conjugate EARS: normal NOSE: septum intact NECK/THYROID: no jugular venous di stention, no carotid bruit, thyroid normal HEART: no clicks, gallops, murmurs, or rubs, regular rhythm, S1, S2 normal, no s3, or vascular bruits LUNGS: clear to auscultatio n ABDOMEN: bowel sounds normal, no ascites, no organomegaly, no mass, centripital obesity NEUROLOGIC: alert and oriented, cranial nerves 2-12 grossly intact, deep tendon reflexes 2+ symmetrical, motor strength normal upper and lower extremities, sensory exam intact SKIN: no suspicious lesion s, anicteric, Benign-appearing skin tag upper right medial thigh without erythema PERIPHERAL PULSES: normal BREASTS: no masses palpable b ilaterally MUSCULOSKELETAL: extremities unremark able, no clubbing, cyanosis or edema, No muscle spasm around the lumbar spine with normal range of motion LYMPH NODES: no enlarged lymph no andres,spleen normal RECTAL EXAM: , normal tone, no ex ternal hemorrhoids, no masses palpable, no melena, no red blood, prostate 1+ No nodules PSYCH: alert, oriented, cog nitive function intact, thought process logical, goal directed, speech clear, cooperative with exam ORAL CAVITY: normal, unremarkable
--- OUTSIDE RECORDS SUMMARY | 2025-05-17 08:36 | XMS_ITS | Data Portability ---
Author Organization [place] - [facility], [facility] Address [address] [place] [address] Care Team Providers Care Die Set Up Worker Name Role Phone SHRUTI SAINI Primary Care Provider [phone] Assessment No assessment recorded. Plan of Treatment Reminders Order Date Submit Date Provider Last Modified By Organization Details Last Modified Time Details Appointments RECHECK 15 2024 08:30A Rick Gilmore PA-C Not available Not available Not available Lab None recorde d. Referral None recorde d. Procedures None recorde d. Surgeries None recorde d. Imaging XR, foot, 3 or more view - room 111, L foot 3v WB 2024 025 [email or web address] [facility], [address], [place], [address], 04/13/2025 10:39:28 XR, foot, 3 or more view - RM 3 3V LEFT FOOT 2024 025 [email or web address] [facility], [address], [place], [address], 03/18/2025 08:07:06 XR, wrist, 3 or more view - room 119 3V R wrist 2023 024 [email or web address] [facility], [address], [place], [address], 09/02/2024 11:20:29 XR, cervica l spine, 1 view - room 222 lateral cervica l 2023 024 [email or web address] [facility], [address], [place], [address], 08/10/2024 09:04:15 XR, shoulde r, 2 or more view - room 222 right shoulde r/later al cervica l 2023 024 [email or web address] [facility], [address], [address], [place], [address], 08/10/2024 09:04:15 Medication Orders meloxic am 15 mg tablet 2024 025 [id number], [id number] [facility], [place], [address], 04/08/2025 09:09:04 Patient TargetsNo targets recorded. Patient InstructionsNo instructions recorded. Reason for Referral None Reported. Results Created Date Observation Date Name Description Value Unit Range Abnormal Flag Note LastModifiedBy Organization Detail LastModifiedTime 07/26/20 24 07/26/2024 XR, cervi anshul spine , 1 view [email or web address] ?Encry pted=s hAaTro YD8dLq bEUv6g %2BXZw aYqtaq 0bqfl% 2Fg9IQ a4ajBk vP9nXo QUaueC m3YtLR FvZlgJ JJ8mAn HZtai3 8t8344 AC0Kqa 32AU6q kKiQtr MwF INTERFACE [facility] [address], [place], [address], 07/26/2024 14:37:13 07/26/20 24 07/26/2024 XR, cervi anshul spine , 1 view [email or web address]:/ [email or web address] ?Encry pted=s hAaTro YD8dLq bEUv6g %2BXZw aYqtaq 0bqfl% 2Fg9IQ a4ajBk vP9nXo QUaueC m3YtLR FvZlgJ JJ8mAn HZtai3 2z2702 AC0Kqa 32AU6q kKiQtr MwF INTERFACE [facility] [address], [place], [address], 07/26/2024 14:37:15 07/26/20 24 07/26/2024 XR, shoul cindy, 2 or more view [email or web address] ?Encry pted=s hAaTro YD8dLq bEUv6g %2BXZw aYqtaq 0bqfl% 2Fg9IQ a4ajBk vP9nXo QUaueC m3YtLR FvZlgJ JJ8mAn HZtai3 0p0240 AC0Kqa 32AU6W uKiQtr MwF INTERFACE [facility] [address], [place], [address], 07/26/2024 14:39:47 07/26/20 24 07/26/2024 XR, shoul cindy, 2 or more view [email or web address] ?Encry pted=s hAaTro YD8dLq bEUv6g %2BXZw aYqtaq 0bqfl% 2Fg9IQ a4ajBk vP9nXo QUaueC m3YtLR FvZlgJ JJ8mAn HZtai3 9h6841 AC0Kqa 32AU6W uKiQtr MwF INTERFACE [facility] [address], [place], [address], 07/26/2024 14:39:49 08/11/20 24 08/11/2024 XR, wrist , 3 or more view [email or web address]:/ [email or web address] ?Encry pted=s hAaTro YD8dLq bEUv6g %2BXZw aYqtaq 0bqfl% 2Fg9IQ a4ajBk vP9nXo QUaueC m3YtLR FvZlgJ JJ8mAn HZtai3 7r9140 AC0Kqa 3qFU6K nKiQtr MwF INTERFACE [facility] [address], [place], [address], 08/11/2024 08:50:19 08/11/20 24 08/11/2024 XR, wrist , 3 or more view [email or web address]:/ [email or web address] ?Encry pted=s hAaTro YD8dLq bEUv6g %2BXZw aYqtaq 0bqfl% 2Fg9IQ a4ajBk vP9nXo QUaueC m3YtLR FvZlgJ JJ8mAn HZtai3 9a7304 AC0Kqa 3qFU6K nKiQtr MwF INTERFACE [facility] [address], [place], [address], 08/11/2024 08:50:21 03/11/20 25 03/11/2025 XR, foot, 3 or more view [email or web address]:/ [email or web address] ?Encry pted=s hAaTro YD8dLq bEUv6g %2BXZw aYqtaq 0bqfl% 2Fg9IQ a4ajBk vP9nXo QUaueC m3YtLR FvZlgJ JJ8mAn HZtai3 5y9085 AC0Kla 3yCUau jKiQtr MwF INTERFACE [facility] [address], [place], [address], 03/11/2025 13:24:05 03/11/20 25 03/11/2025 XR, foot, 3 or more view [email or web address] ?Encry pted=s hAaTro YD8dLq bEUv6g %2BXZw aYqtaq 0bqfl% 2Fg9IQ a4ajBk vP9nXo QUaueC m3YtLR FvZlgJ JJ8mAn HZtai3 0b4854 AC0Kla 3yCUau jKiQtr MwF INTERFACE [facility] [address], [place], [address], 03/11/2025 13:24:06 04/08/20 25 04/08/2025 XR, foot, 3 or more view [email or web address]:/ [email or web address] ?Encry pted=s hAaTro YD8dLq bEUv6g %2BXZw aYqtaq 0bqfl% 2Fg9IQ a4ajBk vP9nXo QUaueC m3YtLR FvZlgJ JJ8mAn HZtai3 9b7414 AC0Kla H6MUqO hKiQtr MwF INTERFACE [facility] [address] [facility] [address], [place], [address], 04/08/2025 08:52:31 04/08/20 25 04/08/2025 XR, foot, 3 or more view http:/ [email or web address] ?Encry pted=s hAaTro YD8dLq bEUv6g %2BXZw aYqtaq 0bqfl% 2Fg9IQ a4ajBk vP9nXo QUaueC m3YtLR FvZlgJ JJ8mAn HZtai3 7p2300 AC0Kla H6MUqO hKiQtr MwF INTERFACE [facility] [address] [facility] [address], [place], [address], 04/08/2025 08:52:33 Result Notes Documentation Provider Name and Address Organization Details Recorded Time Xr, Cervical Spine, 1 View : [email or web address] Encrypted=lkFdRbbJE0lAfdV Uv6g%1UQOzsEeqvc6iugs%2Fg 2JSy6yjHqsZ3dYrCQsyrTn5Mk CZQvRvpWQH9vKgQWvzg07k281 8PN2Cwz82IJ8lyFqTfiNfR Not Available [facility] 07/26/2024 14:37: 14 Xr, Cervical Spine, 1 View : [email or web address] Encrypted=chPuIvhNF7oDnhD Uv6g%4FSZpoRfxkg2uxzr%2Fg 9IBv3yxYjoH2mBnDEejtCw3Bh MEEhUhhQVC2iEeBWmcj43i191 9OO0Ged85XZ3huIdNseSiK Not Available [facility] 07/26/2024 14:37: 16 Xr, Shoulder, 2 Or More View : [email or web address] Encrypted=eoSzZvoGV4yRgxA Uv6g%9PZUwfZhbux7fguz%2Fg 8AMf7weSnmW4hRcWBtlwNr3Fc PZEqLowKLG4mKlOVxpv79g300 5KA2Unt08JG4KvQfGpcKeD Not Available [facility] 07/26/2024 14:39: 48 Xr, Shoulder, 2 Or More View : [email or web address] Encrypted=czAuEgdIF7rEynJ Uv6g%0WAUebKnxfq4vaua%2Fg 8WNz8aiWymU4cNtMRwxzGe7Af ASRsBmpKNY7bMmOOxxw68s569 9MG3Jpz77LI1XpYsTylOuM Not Available [facility] 07/26/2024 14:39: 49 Xr, Wrist, 3 Or More View : [email or web address] Encrypted=cxFhWywJB3lVlhF Uv6g%6GBWnlYpgly9ymns%2Fg 5JZy5qcSrnV7xXgJNgefBw5Fv MXRxUkwFDS1oMoEAldz12q094 6OG7Oha7yZF5FhRsTruOaI Not Available [facility] 08/11/2024 08:50: 20 Xr, Wrist, 3 Or More View : [email or web address] Encrypted=ecJhWfvFO8cHnrL Uv6g%6MKZldLphzp4ytqj%2Fg 9HKa7noGqnH5wSyELjubWc3Lk EMLcJdcXNP3dDuQJvnj85n569 0RY1Nnx5wOG6ZvRaGseErF Not Available [facility] 08/11/2024 08:50: 22 Xr, Foot, 3 Or More View : [email or web address] Encrypted=ztWvXxaYM0jXxzM Uv6g%3AJMreEgvaa8dfsc%2Fg 7GYk0sqFwnZ5eFiLTkrkMw7Xp XKAmOulAPD2iMeEDslj33u346 8VV0How3rCOhhoYhPqyTtM Not Available [facility] 03/11/2025 13:24: 05 Xr, Foot, 3 Or More View : [email or web address] Encrypted=gkMeTjvSP9uOvuA Uv6g%0XRMoaFpfkd0fsex%2Fg 1VGi8drGnnK0vUgGRdcaFg5Bt IWEjYlqSJE7pWtPXglg48k009 6TY3Huy1vMHlquFeXotGoC Not Available [facility] 03/11/2025 13:24: 07 Xr, Foot, 3 Or More View : [email or web address] Encrypted=wpDfQlbMP5wMfjE Uv6g%2QNKamPltro8tjsx%2Fg 3GDw7xtQfdV6wKeKZqfhPc0Qi TEBoRmbLYR2oPlOZmcz27q557 7RI8CcsS0NZqKvUbSqbZlH Not Available [facility] 04/08/2025 08:52: 32 Xr, Foot, 3 Or More View : [email or web address] Encrypted=ekJnPrwGR4dCjqC Uv6g%7WEXmuRmjqj0rlsp%2Fg 1PZk1iwPfeU9sTrPTgnjPp3Pr EWRwGvhGNT6kOyTTufo08n313 3CY3DacR1JMiXaSnYkuJhT Not Available [facility] 04/08/2025 08:52: 33 Problems Name Problem SNOMED Code Status Onset Date Resolution Date Notes Provider Name and Address Organization Details Recorded Time Pain of right shoulder joint 8344813525665 9100 Active 2023 Yuri Barnes PA-C [address], [place], [address] , [facility] 4 14:31:04 Neck pain 23545643 Active 2023 Yuri Barnes PA-C [address], [place], [address] , [facility] 4 14:31:12 Partial thickness rotator cuff tear 528387785 Active 2023 Yuri Barnes PA-C [address], [place], [address] , [facility] 4 14:51:41 Metatarsal mike of left foot 1008000362133 06 Active 2024 Evette Gilmore PA-C [address], [place], [address] , [facility] 5 09:08:03 Problem Notes None recorded. Procedures Surgical History Date Name Laterality Status Provider Name and Address Organization Details Recorded Time 4 Wrist Joint Kenalog Injection, L/R completed Kirti Guadarrama PA-C [address], [place], [address], [facility] 09/10/2024 09:29:11 4 Carpal Tunnel Kenalog 1cc injection, L/R completed Kirti Guadarrama PA-C [address], [place], [address], [facility] 08/11/2024 09:31:40 4 Sports Shoulder completed Yuri Barnes PA-C [address], [place], [address], [facility] 07/26/2024 14:51:22 Imaging Results None recorded. Procedure Notes None recorded. Medical Equipment None Reported. Allergies No known drug allergies Medications Name Sig Start Date Stop Date Status Note LastModified by Organization Details LastModified Time prednisone 10 mg tablet TAKE 2 TABLETS BY MOUTH EVERY DAY FOR 21 DAYS active Not Available Not Available No t Available meloxicam 15 mg tablet TAKE 1 TABLET BY MOUTH EVERY DAY NEEDED FOR 90 DAYS active Not Available Not Available No t Available triamcinolon e acetonide 0.1 % topical cream 1 APPLICATION EXTERNALLY TWO TIMES A DAY 90 DAYS active Not Available Not Available Not Available simvastatin 40 mg tablet TAKE 1 TABLET ONCE DAILY INTHE EVENING active Not Available Not Available No t Available Wixela Inhub 250 mcg-50 mcg/dose powder for inhalation USE 1 INHALATION ORALLY TWICE DAILY active Not Available Not Available Not Available Proair Digihaler 90 mcg/actuatio n aerosol powder breath act, sensor Inhale 2 puffs every 4 hours by inhalation route. active Not Available Not Available No t Available Vitals Date Recorded Body height Body mass index (BMI) Body weight Provider Name and Address Organization Details Last Updated DateTime 03/11/2025 175.26 cm 29.5 kg/m2 68696.47 g GEMA GONZALES [facility] 03/11/2025 13:12:38 Date Recorded Body height Body mass index (BMI) Body weight Provider Name and Address Organization Details Last Updated DateTime 04/08/2025 175.26 cm 29.5 kg/m2 91171.47 g Altagracia Green [facility] 04/08/2025 08:43:43 Date Recorded Body height Body mass index (BMI) Body weight Provider Name and Address Organization Details Last Updated DateTime 07/26/2024 175.26 cm 29.5 kg/m2 62610.47 g Yuri Barnes PA-C [address] [place] [address] [address], [place], [address], [facility] 07/26/2024 14:29:31 Date Recorded Body height Body mass index (BMI) Body weight Provider Name and Address Organization Details Last Updated DateTime 08/11/2024 175.26 cm 29.5 kg/m2 69054.47 g BRIA SHERMAN [facility] 08/11/2024 08:44:16 Date Recorded Body height Body mass index (BMI) Body weight Provider Name and Address Organization Details Last Updated DateTime 09/10/2024 175.26 cm 29.5 kg/m2 01947.47 g leti shah [place] [facility] 09/10/2024 09:28:47 Social History None recorded. Functional Status None recorded. Mental Status None recorded. Family History Nothing Reported. Medical History Condition Response Hepatitis Y Asthma Y Cholesterol Y Past Encounters Encounter ID Performer Location Encounter Start Date Encounter Closed Date Diagnosis/Indication Diagnosis SNOMED-CT Code Diagnosis ICD10 Code Diagnosis Note [id number] LAURIE Malcolm [address] [place] [address] 07/26/2024 14:10:47 08/10/2024 09:04:15 Pain of right shoulder joint 8666465571 3166924 M25.511 Neck pain 03488879 M54.2 Partial th ickness rotator cuff tear 647343446 M75.551 [id number] Kirti Guadarrama PA-C [facility] [address] [place] [address] 08/11/2024 08:11:35 09/02/2024 11:20:28 Pain of right wrist 1920678819 34766 M25.531 Carpal gutierrez agnieszka syndrome of right wrist 6873141545 39247 G56.01 [id number] LAURIE Correia [address] [place] [address] 09/10/2024 08:50:46 09/28/2024 12:54:04 Carpal tunnel syndrome of right wrist 3698441279 64327 G56.01 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 0528611036 48525 M19.519 [id number] LAURIE Pineda [facility] [address] [place] [place] [address] 03/11/2025 12:53:36 03/31/2025 16:19:51 Pain in left foot 0858433204 74601 M79.812 [id number] LAURIE Chi [facility] [address] [place] [address] 04/08/2025 08:32:34 04/13/2025 10:39:28 Pain in left foot 7502743743 59338 M79.672 Metatarsal mike of left foot 8058274903 50807 M77.42 Health Concerns Section Related Observation LastModified by Organization Detai ls LastModified Time None Recorded Concern Status LastModified by Organization Details LastModified Time None Recorded Advance Directives Directive None Recorded Payers Insurance Date Sequence Insurance Name Policy Number Policy Lam Covered Member ID Lam Member ID Guarantor Name 04/06/2025 [employer] - SPECIALITY CLAIMS (MEDICARE DME REGION A) Darvin Hassan Aakash [id number] Darvin Finn 04/06/2025 1 [place] [employer] [place] Darvin Hassan Aakash [id number] Darvin Finn 04/13/2025 2 [place] [id number] Darvin Hassan Aakash [id number] Darvin Finn Notes Date Note Type Note Provider Name and Address Organization Details Recorded Time 07/26/2024 text/html I am seeing the patient today under the supervision of Dr. Cleary who was available but who did not see the patient.CLINICAL HISTORY: Patient comes in today for evaluation with chief complaint of right shoulder and arm pain. He reports several month duration of symptoms that are exacerbated with overhead activity or reaching quickly. The locates the pain predominantly in the lateral brachium of the shoulder, denies any current numbness and tingling. He does have a separate wrist problem which she is awaiting evaluation for. His recently has been diagnosed with recurrent pulmonary nodules is going through a relatively extensive workup and therefore he is hoping to remain conservative only not pursue any surgical interventions at this time.PAST MEDICAL/SURGICAL HISTORYCurrent medications per intake sheet.PHYSICAL FINDINGSThe patient is well appearing, in no apparent distress, alert and oriented to person, place and time. Gait is symmetric. No significant swelling, warmth or erythema about either shoulder. Examination of the shoulder demonstrates forward elevation 175 , external rotates 45 , internal rotates back pocket with mild discomfort, mild crepitance with patella manipulation, AC joint tenderness, rotator cuff strength 4/5 with horizontal elevation, 4/5 external rotation, 4/5 resisted belly press test, bicipital groove is mildly irritable, no apprehension in positions of instability, normal scapular mechanics. Cervical Exam demonstrates Peripheral, vascular, lymphatic examination, skin, neurologic coordination, reflexes, sensation are within normal limits.X-ray findings: 4 views ordered and independently reviewed previously at [facility] of the right shoulder findings include: Type III acromion, AC joint arthritis, well-preserved glenohumeral joint. Lateral C-spine x-ray independently reviewed today findings note: Multilevel degenerative disc disease ASSESSMENT: Right shoulder impingement, AC joint arthritis, possible small partial-thickness rotator cuff tear. PLAN: Treatment options discussed, ultimately decision was made to go forward with a course of conservative treatment. We talked about home-based physical modifications of activities. Ultimately we discussed MRI imaging however considering his request to remain conservative we would not recommend this modality. Today opted to go forward with subacromial space injection. rest[employer]polis speech recognition community organization aide software was used to create portions of this document. An attempt at proofreading has been made to minimize errors. Please call for corrections Yuri Barnes PA-C [address] [place] [address] [address] [facility], [place], [address], [facility] 07/26/2024 14:52:02 08/11/2024 text/html I am seeing this patient under the supervision of Dr. Smith who was available but who did not see the patient. HPI: Patient is a 68-year-old male presenting to the office today for evaluation of right wrist pain that has been ongoing for the past couple of months. Reports the symptoms are consistent, not worse at any particular time. Denies recent falls or traumatic injury. Reports he has trouble opening jars and cutting his food. Denies any particular numbness or tingling that he has felt. However does mention that he feels the pain radiates up to his elbow. Reports he feels that his hand has been swollen and causes stiffness making it more difficult to make a fist. He is here today for the consultation. Past family, medical, social history and review of systems has been reviewed, updated and is located in the patient's chart. Examination: The patient is well appearing, alert and oriented x3 and in no acute distress. Inspection of the right hand and wrist reveals minimal edema about the hand and digits. Otherwise no edema, atrophy, erythema, ecchymoses or deformity. Skin is intact, no open wounds. Full movement of the forearm, wrist and digits bilaterally. Intact median and ulnar innervated intrinsics. Intact extrinsic wrist and digit flexors and extensors. Intact sensation of median, ulnar and radial nerve distributions. Good capillary refill. Some tenderness noted about the volar aspect of the wrist around the carpal tunnel and a bit around the volar ulnar aspect as well. Otherwise nontender about the wrist, hand, and digits. Median nerve compression test positive on the right. Peripheral, vascular, lymphatic examination, skin, neurological, coordination, reflexes, sensation are within normal limits. X-rays ordered, obtained and reviewed independently today at [facility]: Three-view x-rays of the right wrist reveal no acute fractures or dislocations. Some arthritic changes noted about the wrist. Impression: Right carpal tunnel syndrome Plan: I discussed my findings and the situation with the patient. We discussed potential treatment options at this time including wrist bracing, cortisone injection, and surgical intervention. Patient would like to try A wrist brace and a cortisone injection. Prescription for a wrist lacer brace was provided today. We discussed the role of cortisone as well as its risks and benefits. Patient would like to proceed with an injection. Under sterile technique the patient's right wrist carpal tunnel was injected with 1cc Kenalog. Patient tolerated the procedure well. Post procedure protocol was discussed with the patient. 4-week follow-up was arranged in case patient still has symptoms at which point we can discuss possible cortisone injection in a different medication depending on his pain. Patient agrees with this plan. All questions were answered. The patient has weakness and instability of their extremity which requires stabilization for this semi-rigid/rigid orthosis to improve their function. Verbal and written instructions for the use and application of this item were given. Patient was instructed that should the brace result in increased pain, decreased sensation, increased swelling or an overall worsening of their medical condition, to please contact our office immediately. Wrist lacer brace Speech recognition community organization aide software was used to create portions of this document. An attempt at proofreading has been made to minimize errors. Please call for corrections. Kirti Guadarrama PA-C [address] [facility] [address] [facility], [place], [address], [facility] 08/11/2024 09:32:09/10/2024 text/html I am seeing this patient under the supervision of Dr. Smith who was available but who did not see the patient. Clinical update: Patient is here today for recheck. Reports good relief of symptoms after a cortisone injection in his carpal tunnel during last visit. However he is does still have some wrist pain from his arthritis. He would like a wrist joint cortisone injection today. Denies interval trauma. Physical exam, imaging review, impression, and plan for today's visit updated below.HPI: Patient is a 68-year-old male presenting to the office today for evaluation of right wrist pain that has been ongoing for the past couple of months. Reports the symptoms are consistent, not worse at any particular time. Denies recent falls or traumatic injury. Reports he has trouble opening jars and cutting his food. Denies any particular numbness or tingling that he has felt. However does mention that he feels the pain radiates up to his elbow. Reports he feels that his hand has been swollen and causes stiffness making it more difficult to make a fist. He is here today for the consultation.Past family, medical, social history and review of systems has been reviewed, updated and is located in the patient's chart.Examination: The patient is well appearing, alert and oriented x3 and in no acute distress. Inspection of the right hand and wrist reveals minimal edema about the hand and digits. Otherwise no edema, atrophy, erythema, ecchymoses or deformity. Skin is intact, no open wounds. Full movement of the forearm, wrist and digits bilaterally. Intact median and ulnar innervated intrinsics. Intact extrinsic wrist and digit flexors and extensors. Intact sensation of median, ulnar and radial nerve distributions. Good capillary refill. Patient is tender around the radiocarpal wrist joint. Some tenderness noted about the volar aspect of the wrist around the carpal tunnel and a bit around the volar ulnar aspect as well. Otherwise nontender about the wrist, hand, and digits. Peripheral, vascular, lymphatic examination, skin, neurological, coordination, reflexes, sensation are within normal limits.Previous films: X-rays ordered, obtained and reviewed independently today at [facility]: Three-view x-rays of the right wrist reveal no acute fractures or dislocations. Some arthritic changes noted about the wrist.Impression: Right carpal tunnel syndrome, right wrist OAPlan: I discussed my findings and the situation with the patient. We discussed potential treatment options at this time including wrist bracing, cortisone injection, and surgical intervention. Patient would like to try a cortisone injection for the right wrist radiocarpal joint. We discussed the role of cortisone as well as its risks and benefits. Patient would like to proceed with an injection. Under sterile technique the patient's right wrist radiocarpal joint was injected with 1cc Kenalog and 1 cc lidocaine. Patient tolerated the procedure well. Post procedure protocol was discussed with the patient. Patient will follow-up on an as-needed basis. If symptoms persist or return, or if things worsen or change he will call the office. Patient agrees with this plan. All questions were answered.Speech recognition community organization aide software was used to create portions of this document. An attempt at proofreading has been made to minimize errors. Please call for corrections. Please cc patient's PCP (Dr. Carlton Duval) Kirti Guadarrama PA-C [address] [place] [address], [phone], [facility] 09/10/2024 09:34:36 03/11/2025 text/html I am seeing the patient today under the supervision of dr Smith who was available but who did not see the patient. DX: 1. 3rd and 4th metatarsalgia left foot2. Left plantar fasciitis HPI: 61-year-old male here for orthopedic consultation. He is complaining of 3-week history of left forefoot pain. He walks on the treadmill daily for 1 to 2 miles. He is having difficulty putting weight on his forefoot. Anti-inflammatories ineffective. He also complains of pain first thing in the morning when he wakes out of bed and starts walking. Past family, medical, social history and review of systems has been reviewed, updated and is located in the patient s chart. Examination: Left ankle/foot- A+O x3 non antalgic gaithindfoot-pes cavusno swelling+TTP 3rd and 4th metatarsal heads+TTP medial hindfoot and midfoot- TTP over the course of peroneal or posterior tibial tendonLimited ROM in all planes5/5 strengthN/V intactCalf soft - TTPCompartment are soft right ankle reveals no soft tissue swelling , erythema or ecchymosis. Range of motion is full. Neurovascular intact. X-rays ordered, obtained and reviewed at [facility] 3 views left foot reveals possible old neck fractures of the 2nd, 3rd and 4th metatarsals. Lateral view reveals old tib-fib fracture Impression/Plan: Findings and the situation discussed. Treatment options discussed. Patient was placed in a dorsiflexion night splint. He was referred to therapy to work on stretching and other modalities. Advised him to obtain Dr. Conway's gel inserts. He will apply a metatarsal pad to the forefoot area. He was prescribed meloxicam daily. He will follow-up in a few weeks for recheck. Nella Verdin PA-C [address], [place], [address], [facility] 03/11/2025 13:45:29 04/08/2025 text/html I am seeing this patient under the supervision of Dr. Rios, who was available but who did not see the patient. HPI: Patient is a 69-year-old male presenting today for follow-up in regards to the left forefoot pain. He was seen here in our urgent care clinic on 03/11/2025 with a 3-week history of forefoot pain. He normally walks on the treadmill daily and had difficulty with increased pain in the forefoot. He also complains of start up pain in the morning. At his last visit, he was given a prescription for a metatarsal pad and meloxicam. Presents today for follow-up. Doing somewhat better since then. Feels that the medication is helping somewhat. He wears a night splint which helps somewhat. Denies any interval trauma. Denies any fevers, chills, or paresthesias. PFMSH, Meds and ROS reviewed, updated and signed by me, and is located in the patient's chart.PHYSICAL EXAMINATION: The patient is well appearing and in no apparent distress. Alert and oriented x 3. Examination of his left foot reveals no evidence of edema, erythema, warmth, ecchymosis. Mildly tender to palpation over the plantar metatarsal heads. Nontender to palpation elsewhere about the foot or ankle. Good ankle and digital range of motion. Gastrocnemius contracture noted. Calf soft, nontender. Sensation intact light touch in the left lower extremity. RADIOLOGY: X-rays were ordered, obtained, and reviewed today in our office. 3 views of the left foot reveal no evidence of acute fracture. IMPRESSION: Left foot metatarsalgia, gastrocnemius contracture PLAN: Discussed the findings and situation with the patient today. Discussed the underlying gastrocnemius and Dresher putting pressure over the metatarsal heads and diagnosis of metatarsalgia. He was given handouts with stretching exercises to work on. He was given a refill of meloxicam. Follow-up in 6 to 8 weeks. Call with questions or concerns. The patient is ambulatory, but has weakness and/or instability of their extremity which requires stabilization from this semi-rigid/rigid orthosis to improve their function. Verbal and written instructions for the use and application of this item were given. Patient was instructed that should the brace result in increased pain, decreased sensation, increased swelling or an overall worsening of their medical condition, to please contact our office immediately. Evette Gilmore PA-C [address], [place], [address], [facility] 04/08/2025 12:46:56
--- OUTSIDE RECORDS SUMMARY | 2025-05-17 08:37 | XMS_ITS | Patient Health Record ---
Author Organization [facility] Address [address] [place] [address] Care Team Providers Care Mainspring Strip Inspector Name Role Phone Aiden Virk Primary Care Provider Carlton Baez [phone] Reason For Referral No Information Medications Medication SIG (Take, Route, Fr equency, Duration) Notes Start Date End Date Status ProAir HFA 10/27/2024 10/27/2024 Active Simvastatin 10/27/2024 10/27/2024 Active MoviPrep 100 GM as directed Orally once for 1 dose 07/22/2012 Active Symbicort 10/27/2024 10/27/2024 Active Problems Problem Type SNOMED Code ICD Code Onset Dates Problem Status W/U Status Risk Notes Problem Screening for colorectal cancer (V76.51) Active confirmed Plan Of Treatment Future Test Test Name Order Date COLONOSCOPY 07/01/2012 Insurance Providers Payer Name Payer Address Payer Phone Subscriber Number Group Number Insured Name Patient Relationship to Insured Coverage Start Date Coverage End Date [facility] [address] [facility] [place] [phone] [id number] GEMINI ARTHUR Self - patient is the insured Medical (General) History Medical History History ICD Code Denies ME,DM,CVA,renal disease Asthma Hyperlipidemia Surgical History Surgery Date(Month/Year) Appendix Broken leg
[2025-05-17 09:50] LABS: MANUAL DIFF FLAG NO
[2025-05-17 09:52] LABS: Hematocrit 46.3 % (42.0-52.0); Hemoglobin 15.4 g/dl (14.0-18.0); Imm Gran Abs Auto 0.03 X10*3/uL (0.00-0.03); Imm Gran Pct Auto 0.4 % (0.0-0.4); Lymphocytes Absolute Auto 1.5 X10*3/uL (1.2-4.9); Mean Corpuscular HGB Conc 33.3 g/dl (31.0-36.0); Mean Corpuscular Hemoglobin 29.1 pg (27.0-33.0); Mean Corpuscular Volume 87.4 fL (80.0-98.0); NRBC Abs Auto 0.000 X10*3/uL (0.0-0.012); NRBC Pct Auto 0.0 /100WBC (0.0-0.2); Platelet Count 190 X10*3/uL (160-400); Red Blood Count 5.30 X10*6/uL (4.60-5.80); White Blood Count 6.8 X10*3/uL (4.8-10.8)
[2025-05-17 10:11] LABS: Alanine Aminotransferase 24 U/L (0-40); Albumin Level 4.6 g/dL (3.5-5.0); Alkaline Phosphatase 88 U/L (39-117); Anion Gap 11 (12-20); Aspartate Amino Transferase 22 U/L (5-37); Blood Urea Nitrogen 10 mg/dL (9-16); Calcium 9.1 mg/dL (8.4-10.2); Carbon Dioxide 28 mmol/L (22-29); Chloride 107 mmol/L (96-108); Cholesterol 150 mg/dL (<200); Estimated Glomerular Filt Rate > 60; HDL Cholesterol 45 mg/dL (>40); Potassium 4.3 mmol/L (3.3-5.1); Sodium 142 mmol/L (135-145); Total Protein 7.1 g/dL (6.5-8.0); Triglycerides 105 mg/dL (<150)
[2025-05-17 10:43] LABS: Prostate Specific Antigen 4.86 ng/mL (<0.05-4.0)
== END 2025-05-17 08:25 | disposition home or self-care (01) ==
LOC: HO.10HDL 08:24
PROVIDERS: Visit Provider Internal Medicine Medical Oncology
DX: N40.0 Benign prostatic hyperplasia without lower urinary tract symptoms (principal); E66.9 Obesity, unspecified; G47.30 Sleep apnea, unspecified
CPT/HCPCS: 36415; 80053; 80061; 84153; 85025

== ENCOUNTER 2025-05-24 08:52 | Outpatient (REF) | payer MEDICARE, SELFPAY ==
--- OUTSIDE RECORDS SUMMARY | 2025-01-17 11:15 | XMS_ITS ---
Author Organization Carlton Alonzo III, MD Address [address] [place] [address] [place] [address] Care Team Providers Care Solution Design Engineer Name Role Phone Carlton Alonzo Primary Care Provider [phone] Allergies Allergen (clinical drug ingredient) Drug/Non Drug [...] Date Provider Diagnosis Carlton Alonzo III, MD [address] [place] [address] DR [place], [place] [address] 01/17/2025 Carlton Alonzo Sleep apnea, unspeci fied [...] Reason: ov review labs Provider Name:Carlton Alonzo, 06/13/2025 02:15:00 PM, [address] [place] [address] [address], [place], [address], Provider Name:Carlton Alonzo, 01/18/2026 02:30:00 PM, [address] [place] [address] [address], [place], [address], Progress Notes * Darvin ARTHUR HDOB: [birth year] (69 yo M)Acc No.[id number]:01/17/2025 Progress Notes Patient: Janet BABCOCKMATHEUSDarvin Provider: Kirill Alonzo MD :1955 A ge:69 Y S ex:Male Date:01/17/2025 Address:[address] [place], [place] [id number] Subjective: * Chief Complaints: * A nnual [...] Tonsillectommy fractured left tibia and fibula 2004colonoscopy, [facility] left cataract surgery 10/2021 * Hospitalization/Major Diagno stic Procedure: D enies Past Hospitalization * Family History: F ather: 85 yrs, Dementia, diabetes, hyperlipidemia, diagnosed with Cancer, DM. M other: alive 88 yrs, Dementia, [facility] [place], diagnosed with HTN. 1 brother(s) , 1 [...] N egative H lavell was born and [place], [place]. He has been to for 23 years. They have 2 daughters who are alive and well and 6 grandchildren who are healthy. 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 He has no toxic exposures. He works [...] 01/17/2025 Generated for Raman wagner/Iain/Rocioitting on: 0 05/24/2025 09:08 AM EDT History and Physical Notes * [...]
--- OUTSIDE RECORDS SUMMARY | 2025-05-24 09:08 | XMS_ITS | Data Portability ---
Author Organization [place] - [facility], [facility] Address [address] [place] [address] Care Team Providers Care Biochemistry Specialist Name Role Phone SHRUTI SAINI Primary Care Provider Assessment No assessment recorded. Plan of Treatment [...] 111, L foot 3v WB 2024 025 [email or web address] [facility], [address], [place], [address], 04/13/2025 10:39:28 XR, foot, 3 or more view - RM 3 3V LEFT FOOT 20242 025 [email or web address] [facility], [address], [place], [address], 03/18/2025 08:07:06 XR, wrist, 3 or more view - room 119 3V R wrist 2023 024 [email or web address] [facility], [address], [place], [address], 09/02/2024 11:20:29 XR, cervica l spine, 1 view - room 222 lateral cervica l 2023 024 [email or web address] [facility], [address], [place], [address], 08/10/2024 09:04:15 XR, shoulde r, 2 or more view - room 222 right shoulde r/later al cervica l 2023 024 [email or web address] [facility], [address], [address], [place], [address], 08/10/2024 09:04:15 Medication Orders meloxic am 15 mg tablet 2024 025 [id number], [address] [facility], [place], [address], 04/08/2025 09:09:04 Patient TargetsNo targets recorded. Patient InstructionsNo instructions recorded. Reason for Referral None Reported. Results Created Date Observation Date Name Description Value Unit Range Abnormal Flag Note LastModifiedBy Organization Detail LastModifiedTime 07/26/20 24 07/26/2024 XR, cervi anshul spine , 1 view [email or web address] ?Encry pted=s hAaTro YD8dLq bEUv6g %2BXZw aYqtaq 0bqfl% 2Fg9IQ a4ajBk vP9nXo QUaueC m3YtLR FvZlgJ JJ8mAn HZtai3 0d3368 AC0Kqa 32AU6q kKiQtr MwF INTERFACE [facility] [address], [place], [address], 07/26/2024 14:37:13 07/26/20 24 07/26/2024 XR, cervi anshul spine , 1 view [email or web address] ?Encry pted=s hAaTro YD8dLq bEUv6g %2BXZw aYqtaq 0bqfl% 2Fg9IQ a4ajBk vP9nXo QUaueC m3YtLR FvZlgJ JJ8mAn HZtai3 0j5069 AC0Kqa 32AU6q kKiQtr MwF INTERFACE [facility] [address], [place], [address], 07/26/2024 14:37:15 07/26/20 24 07/26/2024 XR, shoul cindy, 2 or more view [email or web address] ?Encry pted=s hAaTro YD8dLq bEUv6g %2BXZw aYqtaq 0bqfl% 2Fg9IQ a4ajBk vP9nXo QUaueC m3YtLR FvZlgJ JJ8mAn HZtai3 7o6080 AC0Kqa 32AU6W uKiQtr MwF INTERFACE [facility] [address] [facility] [address], [place], [address], 07/26/2024 14:39:47 07/26/20 24 07/26/2024 XR, shoul cindy, 2 or more view [email or web address] ?Encry pted=s hAaTro YD8dLq bEUv6g %2BXZw aYqtaq 0bqfl% 2Fg9IQ a4ajBk vP9nXo QUaueC m3YtLR FvZlgJ JJ8mAn HZtai3 3f1787 AC0Kqa 32AU6W uKiQtr MwF INTERFACE [facility] [address] [facility] [address], [place], [address], 07/26/2024 14:39:49 08/11/20 24 08/11/2024 XR, wrist , 3 or more view [email or web address]:/ [email or web address] ?Encry pted=s hAaTro YD8dLq bEUv6g %2BXZw aYqtaq 0bqfl% 2Fg9IQ a4ajBk vP9nXo QUaueC m3YtLR FvZlgJ JJ8mAn HZtai3 8l8180 AC0Kqa 3qFU6K nKiQtr MwF INTERFACE [facility] [address], [place], [address], 08/11/2024 08:50:19 08/11/20 24 08/11/2024 XR, wrist , 3 or more view [email or web address]:/ [email or web address] ?Encry pted=s hAaTro YD8dLq bEUv6g %2BXZw aYqtaq 0bqfl% 2Fg9IQ a4ajBk vP9nXo QUaueC m3YtLR FvZlgJ JJ8mAn HZtai3 8m4424 AC0Kqa 3qFU6K nKiQtr MwF INTERFACE [facility] [address], [place], [address], 08/11/2024 08:50:21 03/11/20 25 03/11/2025 XR, foot, 3 or more view [email or web address] ?Encry pted=s hAaTro YD8dLq bEUv6g %2BXZw aYqtaq 0bqfl% 2Fg9IQ a4ajBk vP9nXo QUaueC m3YtLR FvZlgJ JJ8mAn HZtai3 4k5452 AC0Kla 3yCUau jKiQtr MwF INTERFACE [facility] [address] [facility] [address], [place], [address], 03/11/2025 13:24:05 03/11/20 25 03/11/2025 XR, foot, 3 or more view [email or web address] ?Encry pted=s hAaTro YD8dLq bEUv6g %2BXZw aYqtaq 0bqfl% 2Fg9IQ a4ajBk vP9nXo QUaueC m3YtLR FvZlgJ JJ8mAn HZtai3 4h0736 AC0Kla 3yCUau jKiQtr MwF INTERFACE [facility] [address], [place], [address], 03/11/2025 13:24:06 04/08/20 25 04/08/2025 XR, foot, 3 or more view [email or web address]:/ [email or web address] ?Encry pted=s hAaTro YD8dLq bEUv6g %2BXZw aYqtaq 0bqfl% 2Fg9IQ a4ajBk vP9nXo QUaueC m3YtLR FvZlgJ JJ8mAn HZtai3 2x5225 AC0Kla H6MUqO hKiQtr MwF INTERFACE [facility] [address] [facility] [address], [place], [address], 04/08/2025 08:52:31 04/08/20 25 04/08/2025 XR, foot, 3 or more view [email or web address]:/ [email or web address] ?Encry pted=s hAaTro YD8dLq bEUv6g %2BXZw aYqtaq 0bqfl% 2Fg9IQ a4ajBk vP9nXo QUaueC m3YtLR FvZlgJ JJ8mAn HZtai3 3a8251 AC0Kla H6MUqO hKiQtr MwF INTERFACE [facility] [address] [facility] [address], [place], [address], 04/08/2025 08:52:33 Result Notes Documentation Provider Name and Address Organization Details Recorded Time Xr, Cervical Spine, 1 View : [email or web address] Encrypted=ctFpKlrCD2oZjeM Uv6g%1TZCrvTtqgn4escq%2Fg 8SDd6mbMnfJ7eDbTDiteEo4Jz XFArLcaVAS5vBiCLnqc97d049 2FT2Ady55GN8mwNmNxvUaW Not Available [facility] 07/26/2024 14:37: 14 Xr, Cervical Spine, 1 View : [email or web address]? Encrypted=rcSgJtsGB4fIivQ Uv6g%9XGRwvMjchv2ceje%2Fg 1DKh3vmHclG2uPyJFeiaLj0Lg KSQjYwiTFF6hCzUNesk73v775 3QF8Zou71DV6ybDvQblEqD Not Available [facility] 07/26/2024 14:37: 16 Xr, Shoulder, 2 Or More View : [email or web address] Encrypted=qpOhQeoES6rExkR Uv6g%3PMEwpOznog7zgcr%2Fg 8MHa9psIuzK1vToHRkndQy9Wb HBMwTpmQTC0sZjJPjbl27a070 8UR8Bfc61XG1ZwJbNnaMvI Not Available [facility] 07/26/2024 14:39: 48 Xr, Shoulder, 2 Or More View : [email or web address] Encrypted=yyJoZwiNW1tUksK Uv6g%1HWVzqGqmzr3eewv%2Fg 3OSu5bwPtqO7tAcLJoiiMb2Wy GVUpBioKNK1tRrXFmhj64x479 5XF7Dml84TY8NwYaOukGwC Not Available [facility] 07/26/2024 14:39: 49 Xr, Wrist, 3 Or More View : [email or web address] Encrypted=nsYaNglXC4rDomB Uv6g%6PJPtxDbopj6hntu%2Fg 5LGm7bcUsaO4iKxYWojfZg4Pl CJNqBmiYMX5xSfGFoit61s421 3RU9Zia8wVA9HpUoTuwKrQ Not Available [facility] 08/11/2024 08:50: 20 Xr, Wrist, 3 Or More View : [email or web address] Encrypted=hrGwNokZV0yIxhR Uv6g%3JUOzmLvbvu1syes%2Fg 6IDj2smPkvS0iHePGoniGo8Ch ZBHfJqiSBA3jFqKExju46r582 0FO1Pwr6xXV7RgQpDndUvY Not Available [facility] 08/11/2024 08:50: 22 Xr, Foot, 3 Or More View : [email or web address] Encrypted=nzHqVycNO3gKwnQ Uv6g%6PWSfvPepuc1fnzx%2Fg 4CGk5hjDpvR4hYzVMoyiYv7Sd VZUdDfuKBV5fDqXDjxu73o033 8PW6Dmk4sDBijiMvIsqFpO Not Available [facility] 03/11/2025 13:24: 05 Xr, Foot, 3 Or More View : [email or web address] Encrypted=seJiNxmJZ1qLrzD Uv6g%7IVXccWqltv4jpyp%2Fg 3KUx9oaFzxJ2pNrYQrdiLu5Td TNAjAnaFBY0iPrWZobe48m168 0OB3Kgf8oZMyudSuMlgNlQ Not Available [facility] 03/11/2025 13:24: 07 Xr, Foot, 3 Or More View : [email or web address] Encrypted=ojThSbnOE3vFfdP Uv6g%6JFBveVmazi0bvil%2Fg 4JNw1bdQpoT4rZzJXuoaAk5As HOFuPiiPIA3nJwSClej03j638 4IJ4OciK6DThLuVqYfqZyC Not Available [facility] 04/08/2025 08:52: 32 Xr, Foot, 3 Or More View : [email or web address] Encrypted=sqMjLriUN2qYtqW Uv6g%3EDFnnPfaja3mjyn%2Fg 3MHz8ctVfnH6pDdJVcbkVb1Xl ADUlYrtCFI9kTjARerb10q289 8ER7OmmU9ORxJtIkGtfPaR Not Available [facility] 04/08/2025 08:52: 33 Problems Name Problem SNOMED Code Status Onset Date Resolution Date Notes Provider Name and Address Organization Details Recorded Time Pain of right shoulder joint 1474178674487 9100 Active 2023 Yuri Barnes PA-C [address], [place], [address] , [facility] 4 14:31:04 Neck pain 47030594 Active 2023 Yuri Barnes PA-C [address], [place], [address] , [facility] 4 14:31:12 Partial thickness rotator cuff tear 337040693 Active 2023 uYri Barnes PA-C [address], [place], [address] , [facility] 4 14:51:41 Metatarsal mike of left foot 8095030206340 06 Active 2024 Evette Gilmore PA-C [address], [place], [address] , [facility] 5 09:08:03 Problem Notes None recorded. Procedures Surgical History Date Name Laterality Status Provider Name and Address Organization Details Recorded Time 4 Wrist Joint Kenalog Injection, L/R completed Kirti Guadarrama PA-C [address], [place], [address], [facility] 09/10/2024 09:29:11 4 Carpal Tunnel Kenalog 1cc injection, L/R completed Kirti Guadarrama PA-C [address], [place], [address], [facility] 08/11/2024 09:31:40 4 Sports Shoulder completed Yuri Barnes PA-C [address], [place], [address], [facility] 07/26/2024 14:51:22 Imaging Results [...] Updated DateTime 03/11/2025 175.26 cm 29.5 kg/m2 42830.47 g GEMA GONZALES [facility] 03/11/2025 13:12:38 Date Recorded Body height Body mass index (BMI) Body weight Provider Name and Address Organization Details Last Updated DateTime 04/08/2025 175.26 cm 29.5 kg/m2 21613.47 g Altagracia Green [facility] 04/08/2025 08:43:43 Date Recorded Body height Body mass index (BMI) Body weight Provider Name and Address Organization Details Last Updated DateTime 07/26/2024 175.26 cm 29.5 kg/m2 10672.47 g Yuri Barnes PA-C [address] [place] [address] [address], [place], [address], [facility] 07/26/2024 14:29:31 Date Recorded Body height Body mass index (BMI) Body weight Provider Name and Address Organization Details Last Updated DateTime 08/11/2024 175.26 cm 29.5 kg/m2 77257.47 g BRIA SHERMAN [facility] 08/11/2024 08:44:16 Date Recorded Body height Body mass index (BMI) Body weight Provider Name and Address Organization Details Last Updated DateTime 09/10/2024 175.26 cm 29.5 kg/m2 00269.47 g leti shah [place] [facility] 09/10/2024 09:28:47 Social History None recorded. Functional Status None recorded. Mental Status None recorded. Family History Nothing Reported. Medical History Condition Response Cholesterol Y Asthma Y Hepatitis Y Past Encounters Encounter ID Performer Location Encounter Start Date Encounter Closed Date Diagnosis/Indication Diagnosis SNOMED-CT Code Diagnosis ICD10 Code Diagnosis Note [id number] LAURIE Malcolm [address] [place] [address] 07/26/2024 14:10:47 08/10/2024 09:04:15 Pain of right shoulder joint 8513701303 7428244 M25.511 Neck pain 39974307 M54.2 Partial th ickness rotator cuff tear 242356193 M75.476 [id number] Kirti Guadarrama PA-C [facility] [address] [place] [address] 08/11/2024 08:11:35 09/02/2024 11:20:28 Pain of right wrist 6856188347 61263 M25.531 Carpal gutierrez agnieszka syndrome of right wrist 4481575334 39448 G56.01 [id number] LAURIE Correia [address] [place] [address] 09/10/2024 08:50:46 09/28/2024 12:54:04 Carpal tunnel syndrome of right wrist 7924498669 60583 G56.01 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 4582707124 05851 M19.716 [id number] LAURIE Pineda [place] [address] [place] [place] [address] 03/11/2025 12:53:36 03/31/2025 16:19:51 Pain in left foot 9965771583 42667 M79.043 [id number] LAURIE Chi [facility] [address] [place] [address] 04/08/2025 08:32:34 04/13/2025 10:39:28 Pain in left foot 9171844472 63220 M79.672 Metatarsal mike of left foot 7588510587 50318 M77.42 Health Concerns Section Related Observation LastModified by Organization Detai ls LastModified Time None Recorded Concern Status LastModified by Organization Details LastModified Time None Recorded Advance Directives Directive None Recorded Payers Insurance Date Sequence Insurance Name Policy Number Policy Lam Covered Member ID Lam Member ID Guarantor Name 05/21/2025 [employer] - SPECIALITY CLAIMS (MEDICARE DME REGION A) Darvin Finn [id number] Darvin Finn 05/21/2025 1 [place] Darvin Finn [id number] Darvin Finn 05/21/2025 2 [place] [id number] Darvin Finn [id number] Darvin Finn
--- OUTSIDE RECORDS SUMMARY | 2025-05-24 09:09 | XMS_ITS | Patient Health Record ---
Author Organization [facility] Address [address] [place] [address] Care Team Providers Care Business Banking Sales Assistant Name Role Phone Aiden Virk Primary Care Provider Carlton Baez [phone] Reason For Referral No Information Medications Medication [...] Insured Coverage Start Date Coverage End Date [facility] [address] [facility] [place] [phone] [id number] GEMINI ARTHUR Self - patient is the insured Medical (General) History Medical History History ICD Code Denies [place],DM,CVA,renal disease Asthma Hyperlipidemia Surgical History Surgery Date(Month/Year) Appendix Broken leg
[2025-05-25 13:23] LABS: Free Prostate Spec Ag 0.4 ng/mL; Percent Free Prostate Spec Ag 12 % (calc) (>25)
== END 2025-05-24 08:53 | disposition home or self-care (01) ==
LOC: HO.10HDL 08:52
PROVIDERS: Visit Provider Internal Medicine Medical Oncology
DX: N40.0 Benign prostatic hyperplasia without lower urinary tract symptoms (principal)
CPT/HCPCS: 36415; 84154

== ENCOUNTER 2025-07-21 09:43 | Outpatient (REF) | payer MEDICARE, SELFPAY ==
--- OUTSIDE RECORDS SUMMARY | 2024-09-28 13:00 | XMS_ITS ---
Author Organization Carlton Alonzo III, MD Address [address] [place] [address] [place] [address] Care Team Providers Care Laboratory Animal Caretaker Name Role Phone Dr. Carlton Alonzo III Primary Care Provider [phone] REASON FOR VISIT Annual Exam Social History Sex Assigned At : Social History Observation Description Sex Assigned At Male Encounters Encounter Location Date Provider Diagnosis Carlton Alonzo III, MD [address] [place] [address] [place] [address] 09/28/2024 Carlton Alonzo Plan Of Treatment Next Appt Details Provider Name:Carlton Alonzo , 07/28/2025 09:00:00 AM, [address] [place] [address] [place], [address], Provider Name:Carlton Alonzo , 01/18/2026 04:00:00 PM, [address] [place] [address] [place], [address], Progress Notes * JERSON Darvin HDOB: [birth year] (69 yo M)Acc No.[id number]:09/28/2024 Progress Notes Patient: Darvin LUBIN Provider: Kirill Alonzo MD :1955 A ge:68 Y S ex:Male Date:09/28/2024 Address: [address] [id number] Subjective: * Chief Complaints: * 1 . Annual Exam. * Medical History: Objective: * Vitals: Assessment: Plan: * Treatment: * Images: * The named appointment provid er may or may not be the originator of this progress note, and it is not deemed complete until electronically signed by the appointment provider. Sign off status: Pending * Provider: Kirill Alonzo MD Date: 1 11/29/2023 Generated for Raman wagner/Iain/Rocioitting on: 0 07/21/2025 11:34 AM EDT
--- OUTSIDE RECORDS SUMMARY | 2025-01-17 11:15 | XMS_ITS ---
Author Organization Carlton Alonzo III, MD Address [address] [place] [address] [place] [address] Care Team Providers Care Physician Advisor Name Role Phone Dr. Carlton Alonzo III Primary Care Provider Allergies Allergen (clinical drug [...] Date Provider Diagnosis Carlton Alonzo III, MD [address] [place] [address] [place] [address] 01/17/2025 Carlton Alonzo Sleep apnea, unspeci fied [...] Months, Reason: ov review labs Provider Name:Carlton Alonzo , 07/28/2025 09:00:00 AM, [address] [place] [address] [address], [place], [address], Provider Name:Carlton Alonzo , 01/18/2026 04:00:00 PM, [address] [place] [address] [address], [place], [address], Progress Notes * Darvin ARTHUR HDOB: [birth year] (69 yo M)Acc No.[id number]:01/17/2025 Progress Notes Patient: Darvin LUBIN Provider: Kirill Alonzo MD :1955 A ge:69 Y S ex:Male Date:01/17/2025 Address:[address] [place] [address] Subjective: * Chief Complaints: * A nnual [...] Medical History: * Surgical History: v asectomy 2001appendectomy Tonsillectommy fractured left tibia and fibula 2003colonoscopy, [facility] left cataract surgery 10/2021 * Hospitalization/Major Diagno stic Procedure: D enies Past Hospitalization * Family History: F ather: 85 yrs, Dementia, diabetes, hyperlipidemia, diagnosed with Cancer, DM. M other: alive 88 yrs, Dementia, lives at the [facility] in [place], diagnosed with HTN. 1 brother(s) , 1 [...] P oints 2 I nterpretation N egative Sonya monte was born and [place], [place]. He has been to for 23 years. They have 2 daughters who are alive and well and 6 grandchildren who are healthy. 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 He has no toxic exposures. He works [...] off status: Completed true * Provider: Kirill Alonoz MD Date: 0 01/17/2025 Generated for Raman wagner/Iain/Rocioitting on: 0 07/21/2025 11:33 AM EDT History and Physical Notes * [...]
--- OUTSIDE RECORDS SUMMARY | 2025-03-03 06:05 | XMS_ITS ---
Author Organization Carlton Alonzo III, MD Address [address] [place] [address] Care Team Providers Care Instructional Writer Name Role Phone Dr. Carlton Alonzo III Primary Care Provider Reason For Referral Reason Evaluate and Treat Routine Nail Care Pain in toes and foot Diagnosis 1 Foot pain, left (M79 .672) Referral Organization Carlton Alonzo III, MD Referring Provider First Name Carlton Referring Provider Last Name Cheri Referring Provider Speciality Internal M edicine Referred Provider ERMA CAMACHO Referred Provider Specialty Podiatry General Notes Maritza Ruelas 03/03/2025 10:37:26 AM > Faxed referral, Maritza Ruelas 03/04/2025 10:37:57 AM > Patient called Dr. Camacho's office and stated that they have not received it. Referral was refaxed, Maritza Ruelas 04/26/2025 11:04:51 AM > Patient went to Urgent care at [facility] and was seen and treated. Referral Priority Routine REASON FOR VISIT Podiatry Referral Social History Sex Assigned At : Social History Observation Description Sex Assigned At Male Encounters Encounter Location Date Provider Diagnosis Carlton Alonzo III, MD [address] [place] [address] [place] [address] 03/03/2025 Carlton Alonzo Plan Of Treatment Referrals Referral Date Details 03/03/2025 03/03/2025, Evaluate and Treat Routine Nail Care Pain in toes and foot, ERMA CAMACHO Next Appt Details Provider Name:Carlton Alonzo , 07/28/2025 09:00:00 AM, [address] [place] [address] [address], [place], [address], Provider Name:Calrton Alonzo , 01/18/2026 04:00:00 PM, [address] [place] [address] [address], [place], [phone], Progress Notes * Darvin ARTHUR HDOB: [birth year] (69 yo M)Acc No.[id number]:03/03/2025 Patient: Darvin LUBIN :1955 A ge:69 Y S ex:Male Address:[address] [place] [address], [id number] Subjective: * Chief Complaints: * P odiatry Referral * Medical History: * Surgical History: * Hospitalization/Major Diagno stic Procedure: * Medications: Objective: * Vitals: * Physical Examination: Assessment: Plan: * Treatment: * Procedure Codes: * true * Date: Generated for Raman wagner/Iain/eTransmitting on: 0 07/21/2025 11:33 AM EDT Consultation Request Notes Referral Date Referring Provider Referred Provider Not es 03/03/2025 Carlton Alonzo CHRISTOPHER Evaluate and Treat Routine Nail Care Pain in toes and foot
--- OUTSIDE RECORDS SUMMARY | 2025-05-23 11:00 | XMS_ITS ---
Author Organization Carlton Alonzo III, MD Address [address] [place] [address] Care Team Providers Care Statistical Technician Name Role Phone Dr. Carlton Alonzo III Primary Care Provider [phone] Allergies Allergen (clinical drug ingredient) Drug/Non Drug Allergy documented on EMR Reaction Allergy Type Onset Date Status Dust Mites Unknown Allergy Active Dog dander Dog Dander Unknown Allergy Active Cat dander Cat Dander Unknown Allergy Active Results Component Value Reference Range Notes PSA Free and Total (Not yet reviewed by provider) Interpretation: Performing Lab:[facility], [address] [place] [id number] Notes/Report: Prostate Specific Ag Total 3.3 < OR = 4.0 ng/ mL Percent Free Prostate Spec Ag 12 >25 % (calc ) PSA(ng/mL) Free PSA(%) Estimated(x) Probability of Cancer(as%) 0-2.5 (*) Approx. 1 2.6-4.0(1) 0-27(2) 24(3) 4.1-10(4) 0-10 56 11-15 28 16-20 20 21-25 16 >or =26 8 >10(+) N/A >50 References:(1)Jayson et al.:Urology 60: 469-474 (2002) (2)Jayson et al.:J.Urol 168: 922-925 (2002) Free PSA(%) Sensitivity(%) Specificity(%) < or = 25 85 19 < or = 30 93 9 (3)Jayson et al.:LISSETH 277: 3023-8860 (1996) (4)Catalona et al.:LISSETH 279: 9698-3278 (1997) (x)These estimates vary with age, ethnicity, family history and QUINCY results. (*)The diagnostic usefulness of % Free PSA has not been established in patients with total PSA below 2.6 ng/mL (+)In men with PSA above 10 ng/mL, prostate cancer risk is determined by total PSA alone. The Total PSA value from this assay system is standardized against the equimolar PSA standard. The test result will be approximately 20% higher when compared to the WHO-standardized Total PSA (Siemens assay). Comparison of serial PSA results should be interpreted with this fact in mind. PSA was performed using the Liz Amalia Immunoassay method. Values obtained from different assay methods cannot be used interchangeably. PSA levels, regardless of value, should not be interpreted as absolute evidence of the presence or absence of disease. THIS TEST WAS PERFORMED AT: [facility] [address] [place] [id number] AMANDA SHARPE MD Free Prostate Spec Ag 0.4 REASON FOR VISIT Psoriasis\, Sleep apnea, Asthma, Obesity, Low back pain, Benign prostatic hypertrophy Medications Medication SIG (Take, Route, Frequency, Duration) Notes Start Date End Date Status Simvastatin 40 MG take 1 tablet by alejandro th in the evening once daily Orally Once a day Active Triamcinolone Acetonide 0.1 % 1 application Externally Two times a day 01/17/2025 Active Wixela Inhub 250-50 MCG/ACT USE 1 INHALA TION ORALLY TWICE DAILY Active Albuterol Sulfate HFA 108 (90 Base) MCG/ACT 1 puff as needed Inhalation every 4 hrs 01/21/2023 Active Meloxicam 15 MG TAKE 1 TABLET BY ALEJANDRO TH EVERY DAY NEEDED FOR 90 DAYS Oral Active Social History Tobacco Use: Social History Observation Description Date Details (start date - stop date) Never Smoker NA - NA Sex Assigned At : Social History Observation Description Sex Assigned At Male Tobacco Control (Standard) Question Answer Notes Tobacco use: Nonsmoker Additional Findings: Tobacco non-user Aggressive nonsmoker Vital Signs Temperature 98.1 degrees Fahrenheit 05/23/20 25 Blood pressure systolic 131 mm Hg 05/23/20 25 Blood pressure diastolic 75 mm Hg 025 Heart Rate 60 /min 05/23/2025 Height 68 in 05/23/2025 Weight 212 lbs 05/23/2025 BMI 32.23 kg/m2 05/23/2025 Encounters Encounter Location Date Provider Diagnosis Carlton Alonzo III, MD [address] [place] [address] [place] [address] 05/23/2025 Carlton Alonzo Sleep apnea, unspeci fied type G47.30 ; Mixed hyperlipidemia E78.2 ; Psoriasis L40.9 ; Dyspepsia R10.13 ; Moderate asthma without complication, unspecified whether persistent J45.909 ; Carpal tunnel syndrome, bilateral G56.03 and BPH (benign prostatic hyperplasia) N40.0 Assessments Encounter Date Diagnosis (ICD Code) Assessment Notes Treat ment Notes Treatment Clinical Notes 05/23/2025 Sleep apnea, unspecified type (ICD-10 - G47.30) He says he is no longer using his CPAP as he doesn't think it is effective. He denies any snoring or daytime somnolence. 05/23/2025 Mixed hyperlipidemia (ICD-10 - E78.2) His lipids are in the target range. I recommended a healthy Mediterranean diet and regular physical activity combined with weight loss. 05/23/2025 Psoriasis (ICD-10 - L40.9) His psoriasis is mild and controlled with topical medications. No change in his regimen as needed.I have given him triamcinolone. 05/23/2025 Dyspepsia (ICD-10 - R10.13) He will continue to use omeprazole as needed combined with a liquid antacid. His heartburn and dyspepsia are well controlled today. 05/23/2025 Moderate asthma without complication, unspecified whether persistent (ICD-10 - J45.909) He is breathing comfortably today without wheezing. He is compliant with all his medications. 05/23/2025 Carpal tunnel syndrome, bilateral (ICD-10 - G56.03) 05/23/2025 BPH (benign prostati c hyperplasia) (ICD-10 - N40.0) Plan Of Treatment Medication Medication Name Sig Start Date Stop Date Notes Simvastatin 40 MG take 1 tablet by alejandro th in the evening once daily Orally Once a day Triamcinolone Acetonide 0.1 % 1 applicat ion Externally Two times a day 01/17/2025 Wixela Inhub 250-50 MCG/ACT USE 1 INHALA TION ORALLY TWICE DAILY Albuterol Sulfate HFA 108 (9 0 Base) MCG/ACT 1 puff as needed Inhalation every 4 hrs 01/21/2023 Meloxicam 15 MG TAKE 1 TABLET BY ALEJANDRO TH EVERY DAY NEEDED FOR 90 DAYS Oral Pending Test Test Name Order Date PSA Free and Total 05/23/2025 Next Appt Details Follow Up: 2 Weeks, Reason: OV Provider Name:Carlton Ortiz Cheri , 07/28/2025 09:00:00 AM, [address] [place] [address] [address], [place], [address], Provider Name:Carlton Ortiz Cheri , 01/18/2026 04:00:00 PM, [address] [place] [address] [address], [place], [address], Progress Notes * Darvin ARTHUR HDOB: [birth year] (69 yo M)Acc No.[id number]:05/23/2025 Progress Notes Patient: Janet BABCOCKMATHEUSDarvin Provider: Kirill Alonzo MD :1955 A ge:69 Y S ex:Male Date:05/23/2025 Address:[address] [place], [place] [id number] Subjective: * Chief Complaints: * P soriasis\Sleep apneaAsthmaObesityLow back painBenign prostatic hypertrophy * HPI: C OVID-19 Screening: Sonya ortiz returns for a scheduled medical management. He says his carpal tunnel syndrome is worse on the left wrist and on the right and does occasionally impair his ability to complete activities. He complained of a rash on his upper right arm, but this was very minimal. On inspection. His low back pain has been minimal lately. He has had no attacks of asthma lately. He describes a pollen season is not too bad. He has sleep apnea but does not wish to have a CPAP machine. He did not find it useful. His PSA was elevated today and his rectal examination was done that showed a fairly normal feeling prostate. A free PSA was requested. Questions H ave you had any new onset fever, chills, cough, congestion, sore throat, shortness of breath, muscle aches? N o * ROS: G eneral/Constitutional: pain L umbar spine. C hills d enies. F atigue?admits. F ever d enies. E NT: Decreased [...] have been noted. G enitourinary: Frequent urination o nce a night. M usculoskeletal: Muscle aches d enies. P ainful joints d enies. S ciatica d enies. W eakness d enies. S kin: Itching d enies. R vineet R ight arm, fading. S kin lesion(s) d enies. N eurologic: Difficulty speaking d enies. D izziness d enies.?Headache d enies. L ow back pain d enies. P sychiatric: Depressed mood d enies. * Medical History: * Surgical History: v asectomy 2002appendectomy Tonsillectommy fractured left tibia and fibula 2004colonoscopy, [facility] left cataract surgery 10/2021 * Hospitalization/Major Diagno stic Procedure: D enies Past Hospitalization * Family History: F [place]: 85 yrs, Dementia, diabetes, hyperlipidemia, diagnosed with Cancer, DM. M other: alive 88 yrs, Dementia, lives at the [facility] in [place], diagnosed with HTN. 1 brother(s) , 1 [...] dditional Findings: Tobacco non-user A ggressive nonsmoker Sonya ortiz was born and [place], [place]. He has been to for 23 years. They have 2 daughters who are alive and well and 6 grandchildren who are healthy. 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 He has no toxic exposures. He works 40 hours a week. * Medications: T akingAlbuterol Sulfate HFA 108 (90 Base) MCG/ACT Aerosol Solution 1 puff as needed Inhalation every 4 hrs Simvastatin 40 MG Tablet take 1 tablet by mouth in the evening once daily Orally Once a day Triamcinolone Acetonide 0.1 % Cream 1 application Externally Two times a day Wixela Inhub 250-50 MCG/ACT Aerosol Powder Breath Activated USE 1 INHALATION ORALLY TWICE DAILY Meloxicam 15 MG Tablet TAKE 1 TABLET BY MOUTH EVERY DAY NEEDED FOR 90 DAYS Oral Medication List reviewed and reconciled with the patientTaking Albuterol Sulfate HFA 108 (90 Base) MCG/ACT Aerosol Solution 1 puff as needed Inhalation every 4 hrs Taking Simvastatin 40 MG Tablet take 1 tablet by mouth in the evening once daily Orally Once a day Taking Triamcinolone Acetonide 0.1 % Cream 1 application Externally Two times a day Taking Wixela Inhub 250-50 MCG/ACT Aerosol Powder Breath Activated USE 1 INHALATION ORALLY TWICE DAILY Taking Meloxicam 15 MG Tablet TAKE 1 TABLET BY MOUTH EVERY DAY NEEDED FOR 90 DAYS Oral Medication List reviewed and reconciled with the patient * Allergies: D ust MitesDog DanderCat Danderno[Allergies Verified] Objective: * Vitals: H t: 68, Wt:212, BMI:32.23, BP:131/75, HR:60, Temp:98.1, Wt-k.16. * P ast Orders: Lab:Complete Blood Count Aut o Diff * Collection Date 05/17/2025 09/14/2024 05/31/2024 Collection Time 08:30 AM 08:54 AM 08:15 AM Order Date 05/17/2025 09/14/2024 05/31/2024 White Blood Count 6.8 (Ref Range: 4.8-10.8 X10*3/uL) 7.3 (Ref Range: 4.8-10.8 X10*3/uL) 7.6 (Ref Range: 4.8-10.8 X10*3/uL) Red Blood Count 5.30 (Ref Range: 4.60-5.80 X10*6/uL) 5.43 (Ref Range: 4.60-5.80 X10*6/uL) 4.89 (Ref Range: 4.60-5.80 X10*6/uL) Hemoglobin 15.4 (Ref Range: 14.0-18.0 g/dl) 15.6 (Ref Range: 14.0-18.0 g/dl) 14.6 (Ref Range: 14.0-18.0 g/dl) Hematocrit 46.3 (Ref Range: 42.0-52.0 %) 47.4 (Ref Range: 42.0-52.0 %) 42.5 (Ref Range: 42.0-52.0 %) Mean Corpuscular Volume 87.4 (Ref Range: 80.0-98.0 fL) 87.3 (Ref Range: 80.0-98.0 fL) 86.9 (Ref Range: 80.0-98.0 fL) Mean Corpuscular Hemoglobin 29.1 (Ref Range: 27.0-33.0 pg) 28.7 (Ref Range: 27.0-33.0 pg) 29.9 (Ref Range: 27.0-33.0 pg) Mean Corpuscular HGB Conc 33.3 (Ref Range: 31.0-36.0 g/dl) 32.9 (Ref Range: 31.0-36.0 g/dl) 34.4 (Ref Range: 31.0-36.0 g/dl) Red Cell Distribution Width 13.9 (Ref Range: 11.0-16.0 %) 13.9 (Ref Range: 11.0-16.0 %) 14.1 (Ref Range: 11.0-16.0 %) Platelet Count 190 (Ref Range: 160-400 X10*3/uL) 239 (Ref Range: 160-400 X10*3/uL) 193 (Ref Range: 160-400 X10*3/uL) Mean Platelet Volume 9.8 (Ref Range: 9.4-12.4 fL) 9.7 (Ref Range: 9.4-12.4 fL) 9.9 (Ref Range: 9.4-12.4 fL) Neutrophils Percent Auto 59.3 (Ref Range: 45-73 %) 63.4 (Ref Range: 45-73 %) 61.9 (Ref Range: 45-73 %) Imm Gran Pct Auto 0.4 (Ref Range: 0.0-0.4 %) 0.5 H (Ref Range: 0.0-0.4 %) 0.3 (Ref Range: 0.0-0.4 %) Lymphocytes Percent Auto 22.4 (Ref Range: 20-40 %) 26.0 (Ref Range: 20-40 %) 17.0 L (Ref Range: 20-40 %) Monocytes Percent Auto 7.3 (Ref Range: 2-11 %) 7.8 (Ref Range: 2-11 %) 7.3 (Ref Range: 2-11 %) Eosinophils Percent Auto 9.9 H (Ref Range: 0-4 %) 1.9 (Ref Range: 0-4 %) 13.0 H (Ref Range: 0-4 %) Basophils Percent Auto 0.7 (Ref Range: 0-2 %) 0.4 (Ref Range: 0-2 %) 0.5 (Ref Range: 0-2 %) NRBC Pct Auto 0.0 (Ref Range: 0.0-0.2 /100WBC) 0.0 (Ref Range: 0.0-0.2 /100WBC) 0.0 (Ref Range: 0.0-0.2 /100WBC) Neutrophils Absolute Auto 4.1 (Ref Range: 2.0-8.3 x10*3/uL) 4.6 (Ref Range: 2.0-8.3 x10*3/uL) 4.7 (Ref Range: 2.0-8.3 x10*3/uL) Imm Gran Abs Auto 0.03 (Ref Range: 0.00-0.03 X10*3/uL) 0.04 H (Ref Range: 0.00-0.03 X10*3/uL) 0.02 (Ref Range: 0.00-0.03 X10*3/uL) Lymphocytes Absolute Auto 1.5 (Ref Range: 1.2-4.9 X10*3/uL) 1.9 (Ref Range: 1.2-4.9 X10*3/uL) 1.3 (Ref Range: 1.2-4.9 X10*3/uL) Monocytes Absolute Auto 0.5 (Ref Range: 0.1-1.2 X10*3/uL) 0.6 (Ref Range: 0.1-1.2 X10*3/uL) 0.6 (Ref Range: 0.1-1.2 X10*3/uL) Eosinophils Absolute Auto 0.7 H (Ref Range: 0.0-0.4 X10*3/uL) 0.1 (Ref Range: 0.0-0.4 X10*3/uL) 1.0 H (Ref Range: 0.0-0.4 X10*3/uL) Basophils Absolute Auto 0.1 (Ref Range: 0.0-0.2 X10*3/uL) 0.0 (Ref Range: 0.0-0.2 X10*3/uL) 0.0 (Ref Range: 0.0-0.2 X10*3/uL) NRBC Abs Auto 0.000 (Ref Range: 0.0-0.012 X10*3/uL) 0.000 (Ref Range: 0.0-0.012 X10*3/uL) 0.000 (Ref Range: 0.0-0.012 X10*3/uL) * Lab:[facility] * Collection Date 05/17/2025 09/14/2024 05/31/2024 Collection Time 08:30 AM 08:54 AM 08:15 AM Order Date 05/17/2025 09/14/2024 05/31/2024 Sodium 142 (Ref Range: 135-145 mmol/L) 141 (Ref Range: 135-145 mmol/L) 140 (Ref Range: 135-145 mmol/L) Bilirubin Total 0.7 (Ref Range: 0.0-1.0 mg/dL) 0.8 (Ref Range: 0.0-1.0 mg/dL) 0.5 (Ref Range: 0.0-1.0 mg/dL) Aspartate Amino Transferase 22 (Ref Range: 5-37 U/L) 17 (Ref Range: 5-37 U/L) 11 (Ref Range: 5-37 U/L) Alanine Aminotransferase 24 (Ref Range: 0-40 U/L) 23 (Ref Range: 0-40 U/L) 13 (Ref Range: 0-40 U/L) Total Protein 7.1 (Ref Range: 6.5-8.0 g/dL) 7.1 (Ref Range: 6.5-8.0 g/dL) 7.0 (Ref Range: 6.5-8.0 g/dL) Albumin Level 4.6 (Ref Range: 3.5-5.0 g/dL) 4.2 (Ref Range: 3.5-5.0 g/dL) 4.1 (Ref Range: 3.5-5.0 g/dL) Alkaline Phosphatase 88 (Ref Range: 39-117 U/L) 87 (Ref Range: 39-117 U/L) 96 (Ref Range: 39-117 U/L) Potassium 4.3 (Ref Range: 3.3-5.1 mmol/L) 4.1 (Ref Range: 3.3-5.1 mmol/L) 4.1 (Ref Range: 3.3-5.1 mmol/L) Chloride 107 (Ref Range: 96-108 mmol/L) 106 (Ref Range: 96-108 mmol/L) 107 (Ref Range: 96-108 mmol/L) Carbon Dioxide 28 (Ref Range: 22-29 mmol/L) 30 H (Ref Range: 22-29 mmol/L) 25 (Ref Range: 22-29 mmol/L) Anion Gap 11 L (Ref Range: 12-20) 9 L (Ref Range: 12-20) 12 (Ref Range: 12-20) Blood Urea Nitrogen 10 (Ref Range: 9-16 mg/dL) 11 (Ref Range: 9-16 mg/dL) 12 (Ref Range: 9-16 mg/dL) Creatinine 1.10 (Ref Range: 0.5-1.4 mg/dL) 1.09 (Ref Range: 0.5-1.4 mg/dL) 0.98 (Ref Range: 0.5-1.4 mg/dL) Estimated Glomerular Filt Rate > 60 > 60 > 60 Glucose Fasting 96 (Ref Range: 60-99 mg/dL) 92 (Ref Range: 60-99 mg/dL) 92 (Ref Range: 60-99 mg/dL) Calcium 9.1 (Ref Range: 8.4-10.2 mg/dL) 8.9 (Ref Range: 8.4-10.2 mg/dL) 9.3 (Ref Range: 8.4-10.2 mg/dL) * Lab:Lipid Panel * Collection Date 05/17/2025 09/14/2024 05/31/2024 Collection Time 08:30 AM 08:54 AM 08:15 AM Order Date 05/17/2025 09/14/2024 05/31/2024 Triglycerides 105 (Ref Range: <150 mg/dL) 91 (Ref Range: <150 mg/dL) 64 (Ref Range: <150 mg/dL) Cholesterol 150 (Ref Range: <200 mg/dL) 158 (Ref Range: <200 mg/dL) 142 (Ref Range: <200 mg/dL) LDL Cholesterol Calculated 84 (Ref Range: <100 mg/dL) 88 (Ref Range: <100 mg/dL) 78 (Ref Range: <100 mg/dL) HDL Cholesterol 45 (Ref Range: >40 mg/dL) 52 (Ref Range: >40 mg/dL) 52 (Ref Range: >40 mg/dL) * Lab:Prostate Specific Antige n * Collection Date 05/17/2025 09/14/2024 05/31/2024 Collection Time 08:30 AM 08:54 AM 08:15 AM Order Date 05/17/2025 09/14/2024 05/31/2024 Prostate Specific Antigen 4.86 H (Ref Range: <0.05-4.0 ng/mL) 3.64 (Ref Range: <0.05-4.0 ng/mL) 2.48 (Ref Range: <0.05-4.0 ng/mL) * Examination: G eneral Examination: GENERAL APPEARANCE: p leasant, well nourished, well developed, in no acute distress, calm and relaxed: obese: man. HEAD: a traumatic, normocephalic. EYES: e sheyla, perrla, anicteric, conjugate. EARS: n ormal. NOSE: s eptum intact. ORAL CAVITY: n ormal, unremarkable. NECK/THYROID: n o jugular venous distention, no carotid bruit, thyroid normal. LYMPH NODES: n o enlarged lymph nodes,spleen normal. SKIN: n o suspicious lesions, anicteric. HEART: n o clicks, gallops, murmurs, or rubs, regular rhythm, S1, S2 normal, no s3, or vascular bruits. LUNGS: c lear to auscultation . BREASTS: no masses palpable bilaterally. ABDOMEN: b owel sounds normal, no ascites, no organomegaly, no mass: centripital obesity. RECTAL EXAM: n ot examined. MUSCULOSKELETAL: e xtremities unremarkable, no clubbing, cyanosis or edema, Mild loss of range of motion lumbar spine. PERIPHERAL PULSES: n ormal. NEUROLOGIC: a lert and oriented, cranial nerves 2-12 grossly intact, deep tendon reflexes 2+ symmetrical, motor strength normal upper and lower extremities, sensory exam intact. PSYCH: a lert, oriented. Assessment: * Assessment: 1. M ixed hyperlipidemia - E78.2 (Primary) N otes :His lipids are in the target range. I recommended a healthy Mediterranean diet and regular physical activity combined with weight loss. 2 . S leep apnea, unspecified type - G47.30 N otes :He says he is no longer using his CPAP as he doesn't think it is effective. He denies any snoring or daytime somnolence. 3 . P soriasis - L40.9 N otes :His psoriasis is mild and controlled with topical medications. No change in his regimen as needed.I have given him triamcinolone. 4 . D yspepsia - R10.13 N otes :He will continue to use omeprazole as needed combined with a liquid antacid. His heartburn and dyspepsia are well controlled today. 5 . M oderate asthma without complication, unspecified whether persistent - J45.909 N otes :He is breathing comfortably today without wheezing. He is compliant with all his medications. 6 . C arpal tunnel syndrome, bilateral - G56.03 7 . B PH (benign prostatic hyperplasia) - N40.0 Plan: * Treatment: 2. S leep apnea, unspecified type Continue Albuterol Sulfate HFA Aerosol Solution, 108 (90 Base) MCG/ACT, 1 puff as needed, Inhalation, every 4 hrs; C ontinue Triamcinolone Acetonide Cream, 0.1 %, 1 application, Externally, Two times a day. 3. B PH (benign prostatic hyperplasia) L AB: PSA Free and Total (Collection Date & Time - 05/24/2025 08:56 AM) Value Reference Range P rostate Specific Ag Total 3.3 < OR = 4.0 - n g/mL * P ercent Free Prostate Spec Ag 12 A >25 - % (ca lc) * F ree Prostate Spec Ag 0.4 - ng/mL 4.?Others? Continue Wixela Inhub Aerosol Powder Breath Activated, 250-50 MCG/ACT, USE 1 INHALATION ORALLY TWICE DAILY;?Continue Simvastatin Tablet, 40 MG, take 1 tablet by mouth in the evening once daily, Orally, Once a day.?? * Procedure Codes: * Preventive Medicine: Counseling: [...] Other reason not done * Follow Up: 2 Weeks (Reason: OV) * Images: * Sign off status: Completed true * Provider: Kirill Alonzo MD Date: 0 05/23/2025 Generated for Raman wagner/Iain/Rocioitting on: 0 07/21/2025 11:34 AM EDT History and Physical Notes * HPI (History of Present Illness) Category Sub-Category Detail Notes COVID-19 Screening Questions Have you had any new onset fever, chills, cough, congestion, sore throat, shortness of breath, muscle aches?: No Examination Category Sub-Category Detail Notes General Examination GENERAL APPEARANCE: pleasant , well nourished, well developed, in no acute distress, calm and relaxed: obese: man HEAD: atraumatic, normocep halic EYES: eomi, perrla, anicte desire, conjugate EARS: normal NOSE: septum intact NECK/THYROID: no jugular venous di stention, no carotid bruit, thyroid normal HEART: no clicks, gallops, murmurs, or rubs, regular rhythm, S1, S2 normal, no s3, or vascular bruits LUNGS: clear to auscultatio n ABDOMEN: bowel sounds normal, no ascites, no organomegaly, no mass: centripital obesity NEUROLOGIC: alert and oriented, cranial nerves 2-12 grossly intact, deep tendon reflexes 2+ symmetrical, motor strength normal upper and lower extremities, sensory exam intact SKIN: no suspicious lesion s, anicteric PERIPHERAL PULSES: normal BREASTS: no masses palpable b ilaterally MUSCULOSKELETAL: extremities unremark able, no clubbing, cyanosis or edema, Mild loss of range of motion lumbar spine LYMPH NODES: no enlarged lymph no andres,spleen normal RECTAL EXAM: not examined PSYCH: alert, oriented ORAL CAVITY: normal, unremarkable
--- OUTSIDE RECORDS SUMMARY | 2025-06-13 10:15 | XMS_ITS ---
Author Organization Carlton Alonzo III, MD Address [address] [place] [address] [place] [address] Care Team Providers Care Child Welfare Caseworker Name Role Phone Dr. Carlton Alonzo III Primary Care Provider Allergies Allergen (clinical drug ingredient) Drug/Non Drug Allergy documented on EMR Reaction Allergy Type Onset Date Status Dust Mites Unknown Allergy Active Dog dander Dog Dander Unknown Allergy Active Cat dander Cat Dander Unknown Allergy Active REASON FOR VISIT Sleep apnea, Hyperlipidemia, Asthma, Obesity, Benign prostatic hypertrophy., Low back pain Medications Medication SIG (Take, Route, Frequency, Duration) Notes Start Date End Date Status Simvastatin 40 MG take 1 tablet by alejandro th in the evening once daily Orally Once a day Active Albuterol Sulfate HFA 108 (90 Base) MCG/ACT 1 puff as needed Inhalation every 4 hrs 01/21/2023 Active Meloxicam 15 MG TAKE 1 TABLET BY ALEJANDRO TH EVERY DAY NEEDED FOR 90 DAYS Oral Active Triamcinolone Acetonide 0.1 % 1 application Externally Two times a day 01/17/2025 Active Wixela Inhub 250-50 MCG/ACT USE 1 INHALA TION ORALLY TWICE DAILY Active Social History Tobacco Use: Social History Observation Description Date Details (start date - stop date) Never Smoker NA - NA Sex Assigned At : Social History Observation Description Sex Assigned At Male Tobacco Control (Standard) Question Answer Notes Tobacco use: Nonsmoker Additional Findings: Tobacco non-user Aggressive nonsmoker Problems Problem Type SNOMED Code ICD Code Onset Dates Problem Status W/U Status Risk Notes Problem 436500650 Rising PSA level (R97.20) Active confirmed His PSA in May 2024 was 2.48, and August 2024 it was 3.64, on May 20, 2025 it is 4.86. On his next phlebotomy he will have a PSA and free PSA and if it continues to rise he will be examined and referred to urology. Vital Signs Temperature 98 degrees Fahrenheit 06/13/2025 Blood pressure systolic 130 mm Hg 06/13/20 25 Blood pressure diastolic 75 mm Hg 025 Heart Rate 61 /min 06/13/2025 Height 68 in 06/13/2025 Weight 204 lbs 06/13/2025 BMI 31.01 kg/m2 06/13/2025 Encounters Encounter Location Date Provider Diagnosis Carlton Alonzo III, MD [address] [place] [address] [place] [address] 06/13/2025 Carlton Alonzo Sleep apnea, unspeci fied type G47.30 ; Rising PSA level R97.20 ; Mixed hyperlipidemia E78.2 ; BPH (benign prostatic hyperplasia) N40.0 ; Psoriasis L40.9 and Moderate asthma without complication, unspecified whether persistent J45.909 Assessments Encounter Date Diagnosis (ICD Code) Assessment Notes Treat ment Notes Treatment Clinical Notes 06/13/2025 Sleep apnea, unspecified type (ICD-10 - G47.30) He says he is no longer using his CPAP as he doesn't think it is effective. He denies any snoring or daytime somnolence. 06/13/2025 Rising PSA level (ICD-10 - R97.20) His PSA in May 2024 was 2.48, and August 2024 it was 3.64, on May 20, 2025 it is 4.86. On his next phlebotomy he will have a PSA and free PSA and if it continues to rise he will be examined and referred to urology. 06/13/2025 Mixed hyperlipidemia (ICD-10 - E78.2) His lipids are in the target range. I recommended a healthy Mediterranean diet and regular physical activity combined with weight loss. 06/13/2025 BPH (benign prostati c hyperplasia) (ICD-10 - N40.0) He rises from sleep once or twice a night. We have discussed lifestyle modifications he can make to reduce nocturia. 06/13/2025 Psoriasis (ICD-10 - L40.9) His psoriasis is mild and controlled with topical medications. No change in his regimen as needed.I have given him triamcinolone. 06/13/2025 Moderate asthma without complication, unspecified whether persistent (ICD-10 - J45.909) He is breathing comfortably today without wheezing. He is compliant with all his medications. Plan Of Treatment Medication Medication Name Sig Start Date Stop Date Notes Simvastatin 40 MG take 1 tablet by alejandro th in the evening once daily Orally Once a day Albuterol Sulfate HFA 108 (9 0 Base) MCG/ACT 1 puff as needed Inhalation every 4 hrs 01/21/2023 Meloxicam 15 MG TAKE 1 TABLET BY ALEJANDRO TH EVERY DAY NEEDED FOR 90 DAYS Oral Triamcinolone Acetonide 0.1 % 1 applicat ion Externally Two times a day 01/17/2025 Wixela Inhub 250-50 MCG/ACT USE 1 INHALA TION ORALLY TWICE DAILY Pending Test Test Name Order Date SED RATE (ESR) 06/13/2025 PSA Free and Total 06/13/2025 Next Appt Details Follow Up: 6 Weeks, Reason: OV Provider Name:Carlton Alonzo , 07/28/2025 09:00:00 AM, [address] [place] [address] [address], [place], [id number], Provider Name:Carlton Alonzo , 01/18/2026 04:00:00 PM, [address] [place] [address] [address], [place], [id number], Progress Notes * Darvin ARTHUR HDOB: [birth year] (69 yo M)Acc No.[id number]:06/13/2025 Progress Notes Patient: Darvin LUBIN Provider: Kirill Alonzo MD :[id number] A ge:69 Y S ex:Male Date:06/13/2025 Address:[address] [place] [address] Subjective: * Chief Complaints: * S leep apneaHyperlipidemiaAsthmaObesityBenign prostatic hypertrophy.Low back pain * HPI: C OVID-19 Screening: Sonya monte returns for medical management. He is experiencing nocturia once or twice a night.? We discussed lifestyle modifications he could make reduce nocturia. His back pain has improved and does not bother him much at this time. He is not using CPAP as he finds it not helpful and cumbersome at night. He denies any chest pain or shortness of breath. He is trying to lose weight and consume a healthy diet. His hearing and vision are adequate at this time.? He has had no asthma recently. His psoriasis is mild in his heartburn is controlled with medication. Questions H ave you had any new onset fever, chills, cough, congestion, sore throat, shortness of breath, muscle aches? N o * ROS: G eneral/Constitutional: pain L ow back pain. C hills d enies. F atigue?admits. F [...] have been noted. G enitourinary: Frequent urination t wice a night. M usculoskeletal: Muscle aches d enies. P ainful joints d enies. S ciatica d enies. W eakness d enies. S kin: Itching d enies. R vineet d enies. S kin lesion(s)?denies. N eurologic: Difficulty speaking d enies. D izziness d enies.?Headache d enies. L ow back pain d enies. P sychiatric: Depressed mood d enies. * Medical History: * Surgical History: v asectomy 2002appendectomy Tonsillectommy fractured left tibia and fibula 2003colonoscopy, [facility] left cataract surgery 10/2021 * Hospitalization/Major Diagno stic Procedure: D enies Past Hospitalization * Family History: F ather: 85 yrs, Dementia, diabetes, hyperlipidemia, diagnosed with Cancer, DM. M other: alive 88 yrs, Dementia, lives at the [facility] in [place], diagnosed with HTN. 1 brother(s) , 1 [...] Findings: Tobacco non-user A ggressive nonsmoker Sonya monte was born and [place], [place]. He has been to for 23 years. They have 2 daughters who are alive and well and 6 grandchildren who are healthy. 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 He has no toxic exposures. He works 40 hours a week. * Medications: T akingWixela Inhub 250-50 MCG/ACT Aerosol Powder Breath Activated USE 1 INHALATION ORALLY TWICE DAILY Albuterol Sulfate HFA 108 (90 Base) MCG/ACT Aerosol Solution 1 puff as needed Inhalation every 4 hrs Simvastatin 40 MG Tablet take 1 tablet by mouth in the evening once daily Orally Once a day Triamcinolone Acetonide 0.1 % Cream 1 application Externally Two times a day Meloxicam 15 MG Tablet TAKE 1 TABLET BY MOUTH EVERY DAY NEEDED FOR 90 DAYS Oral Medication List reviewed and reconciled with the patientTaking Wixela Inhub 250-50 MCG/ACT Aerosol Powder Breath Activated USE 1 INHALATION ORALLY TWICE DAILY Taking Albuterol Sulfate HFA 108 (90 Base) MCG/ACT Aerosol Solution 1 puff as needed Inhalation every 4 hrs Taking Simvastatin 40 MG Tablet take 1 tablet by mouth in the evening once daily Orally Once a day Taking Triamcinolone Acetonide 0.1 % Cream 1 application Externally Two times a day Taking Meloxicam 15 MG Tablet TAKE 1 TABLET BY MOUTH EVERY DAY NEEDED FOR 90 DAYS Oral Medication List reviewed and reconciled with the patient * Allergies: D nathaniel Nova[Allergies Verified] Objective: * Vitals: H t: 68, Wt:204, BMI:31.01, BP:130/75, HR:61, Temp:98, Wt-k.53. * P ast Orders: Lab:Prostate Specific Antige n * Collection Date 05/17/2025 09/14/2024 05/31/2024 Collection Time 08:30 AM 08:54 AM 08:15 AM Order Date 05/17/2025 09/14/2024 05/31/2024 Prostate Specific Antigen 4.86 H (Ref Range: <0.05-4.0 ng/mL) 3.64 (Ref Range: <0.05-4.0 ng/mL) 2.48 (Ref Range: <0.05-4.0 ng/mL) * Lab:Lipid Panel * Collection Date 05/17/2025 [...] mg/dL) 52 (Ref Range: >40 mg/dL) * Lab:Comprehensive [place]. Pane l Fast * Collection Date 05/17/2025 09/14/2024 05/31/2024 [...] mg/dL) 9.3 (Ref Range: 8.4-10.2 mg/dL) * Lab:Complete Blood Count Aut o Diff * [...] X10*3/uL) 0.000 (Ref Range: 0.0-0.012 X10*3/uL) * Examination: G eneral Examination: GENERAL APPEARANCE: [...] e xtremities unremarkable, no clubbing, cyanosis or edema. PERIPHERAL PULSES: n ormal. NEUROLOGIC: a lert and oriented, cranial nerves 2-12 grossly intact, deep tendon reflexes 2+ symmetrical, motor strength normal upper and lower extremities, sensory exam intact. PSYCH: a lert, oriented. Assessment: * Assessment: 1. R [facility] PSA level - R97.20 (Primary) N otes :His PSA in May 2024 was 2.48, and August 2024 it was 3.64, on May 20, 2025 it is 4.86. On his next phlebotomy he will have a PSA and free PSA and if it continues to rise he will be examined and referred to urology. 2 . S leep apnea, unspecified type - G47.30 N otes :He says he is no longer using his CPAP as he doesn't think it is effective. He denies any snoring or daytime somnolence. 3 . M ixed hyperlipidemia - E78.2 N otes :His lipids are in the target range. I recommended a healthy Mediterranean diet and regular physical activity combined with weight loss. 4 . B PH (benign prostatic hyperplasia) - N40.0 N otes :He rises from sleep once or twice a night. We have discussed lifestyle modifications he can make to reduce nocturia. 5 . P soriasis - L40.9 N otes :His psoriasis is mild and controlled with topical medications. No change in his regimen as needed.I have given him triamcinolone. 6 . M oderate asthma without complication, unspecified whether persistent - J45.909 N otes :He is breathing comfortably today without wheezing. He is compliant with all his medications. Plan: * Treatment: 2. M ixed hyperlipidemia Continue Meloxicam Tablet, 15 MG, TAKE 1 TABLET BY MOUTH EVERY DAY NEEDED FOR 90 DAYS, Oral.? 3. B PH (benign prostatic hyperplasia) L AB: SED RATE (ESR) L AB: PSA Free and Total 4. O thers Continue Wixela Inhub Aerosol Powder Breath Activated, 250-50 MCG/ACT, USE 1 INHALATION ORALLY TWICE DAILY; C ontinue Simvastatin Tablet, 40 MG, take [...] Other reason not done * Follow Up: 6 Weeks (Reason: OV) * Images: * Sign off status: Completed true * Provider: Kirill Alonzo MD Date: 06/13/2025 Generated for Raman wagner/Iain/Rocioitting on: 0 07/21/2025 [...] extremities unremark able, no clubbing, cyanosis or edema LYMPH NODES: no enlarged lymph no andres,spleen normal RECTAL EXAM: not examined PSYCH: alert, oriented ORAL CAVITY: normal, unremarkable
--- OUTSIDE RECORDS SUMMARY | 2025-07-21 11:34 | XMS_ITS | Patient Health Record ---
Author Organization Carlton Alonzo III, MD Address [address] [address] Care Team Providers Care Judge'S Clerk Name Role Phone Dr. Carlton Alonzo III Primary Care Provider [phone] Allergies Allergen (clinical drug ingredient) Drug/Non Drug Allergy documented on EMR Reaction Allergy Type Onset Date Status Dust Mites Unknown Allergy Active Dog dander Dog Dander Unknown Allergy Active Cat dander Cat Dander Unknown Allergy Active Results Component Value Reference Range Notes PSA Free and Total (Not yet reviewed by provider) Interpretation: Performing Lab:[facility], [address] [place] [id number] Notes/Report: Prostate Specific Ag Total 3.3 < [...] 30 93 9 (3)Jayson et al.:LISSETH 277: [id number] (1997) (4)Jayson et al.:LISSETH 279: [id number] (1998) (x)These estimates vary with age, ethnicity, family [...] of disease. THIS TEST WAS PERFORMED AT: [facility] [address] [place] [phone] AMANDA SHARPE MD Free Prostate Spec Ag 0.4 Complete Blood Count Auto Di ff Reviewed date:09/15/2024 09:09:28 AM Interpretation: Performing Lab:[facility], [address] [place] [phone] Notes/Report: White Blood Count 7.3 4.8-10.8 X10*3/uL Red Blood Count 5.43 4.60-5.80 X10*6/uL Hemoglobin 15.6 14.0-18.0 g/dl Hematocrit 47.4 42.0-52.0 % Mean Corpuscular Volume 87.3 80.0-98.0 fL Mean Corpuscular Hemoglobin 28.7 27.0-33.0 pg Mean Corpuscular HGB Conc 32.9 31.0-36.0 g/dl Red Cell Distribution Width 13.9 11.0-16.0 % Platelet Count 239 160-400 X10*3/uL Mean Platelet Volume 9.7 9.4-12.4 fL Neutrophils Percent Auto 63.4 45-73 % Imm Gran Pct Auto 0.5 0.0-0.4 % Lymphocytes Percent Auto 26.0 20-40 % Monocytes Percent Auto 7.8 2-11 % Eosinophils Percent Auto 1.9 0-4 % Basophils Percent Auto 0.4 0-2 % NRBC Pct Auto 0.0 0.0-0.2 /100WBC Neutrophils Absolute Auto 4.6 2.0-8.3 x10*3/u L Imm Gran Abs Auto 0.04 0.00-0.03 X10*3/uL Lymphocytes Absolute Auto 1.9 1.2-4.9 X10*3/u L Monocytes Absolute Auto 0.6 0.1-1.2 X10*3/uL Eosinophils Absolute Auto 0.1 0.0-0.4 X10*3/u L Basophils Absolute Auto 0.0 0.0-0.2 X10*3/uL NRBC Abs Auto 0.000 0.0-0.012 X10*3/uL Comprehensive [place]. Panel Fa st Reviewed date:09/15/2024 09:09:28 AM Interpretation: Performing Lab:[address] [phone] Notes/Report: Sodium 141 135-145 mmol/L Potassium 4.1 3.3-5.1 mmol/L Chloride 106 96-108 mmol/L Carbon Dioxide 30 22-29 mmol/L Anion Gap 9 12-20 Blood Urea Nitrogen 11 9-16 mg/dL Creatinine 1.09 0.5-1.4 mg/dL Estimated Glomerular Filt Rate > 60 Chronic Kidney Disease: Estimated GFR < 60 mL/min/1.73m2 Severe Kidney Disease: Estimated GFR < 15 mL/min/1.73m2 Glucose Fasting 92 60-99 mg/dL Calcium 8.9 8.4-10.2 mg/dL Bilirubin Total 0.8 0.0-1.0 mg/dL Aspartate Amino Transferase 17 5-37 U/L Alanine Aminotransferase 23 0-40 U/L Total Protein 7.1 6.5-8.0 g/dL Albumin Level 4.2 3.5-5.0 g/dL Alkaline Phosphatase 87 39-117 U/L Lipid Panel Reviewed date:09/15/2024 09:09:28 AM Interpretation: Performing Lab:[address] [phone] Notes/Report: Triglycerides 91 <150 mg/dL Desirable Triglyceride: less than 150 mg/dL Borderline High Triglyceride 150-199 mg/dL High Triglyceride: 200-499 mg/dL Very High Triglyceride: greater than or equal to 5OO mg/dL Cholesterol 158 <200 mg/dL Desirable Cholesterol: less than 200 mg/dL Borderline High Cholesterol: 200-239 mg/dL High Cholesterol: greater than 239 mg/dL LDL Cholesterol Calculated 88 <100 mg/dL Desirable LDL: less than 100 mg/dL Near Optimal/Above Optimal LDL: 110-129 mg/dL Borderline High LDL: 130-159 mg/dL High LDL: 160-189 mg/dL Very High LDL: greater than or equal to 190 mg/dL HDL Cholesterol 52 >40 mg/dL Desirable HDL: greater than 40 mg/dL Note: This HDL assay may give artificially low results in patients with liver disease. Prostate Specific Antigen Reviewed date:09/15/2024 09:09:28 AM Interpretation: Performing Lab:[facility], [address] [place] [phone] Notes/Report: Prostate Specific Antigen 3.64 <0.05-4.0 ng/mL PSA methodology: Boyce Alinity i Chemiluminescent Microparticle Immunoassay (CMIA) Complete Blood Count Auto Di ff Reviewed date:05/23/2025 03:12:01 PM Interpretation: Performing Lab:[facility], [address] [place] [phone] Notes/Report: White Blood Count 6.8 4.8-10.8 X10*3/uL Red Blood Count 5.30 4.60-5.80 X10*6/uL Hemoglobin 15.4 14.0-18.0 g/dl Hematocrit 46.3 42.0-52.0 % Mean Corpuscular Volume 87.4 80.0-98.0 fL Mean Corpuscular Hemoglobin 29.1 27.0-33.0 pg Mean Corpuscular HGB Conc 33.3 31.0-36.0 g/dl Red Cell Distribution Width 13.9 11.0-16.0 % Platelet Count 190 160-400 X10*3/uL Mean Platelet Volume 9.8 9.4-12.4 fL Neutrophils Percent Auto 59.3 45-73 % Imm Gran Pct Auto 0.4 0.0-0.4 % Lymphocytes Percent Auto 22.4 20-40 % Monocytes Percent Auto 7.3 2-11 % Eosinophils Percent Auto 9.9 0-4 % Basophils Percent Auto 0.7 0-2 % NRBC Pct Auto 0.0 0.0-0.2 /100WBC Neutrophils Absolute Auto 4.1 2.0-8.3 x10*3/u L Imm Gran Abs Auto 0.03 0.00-0.03 X10*3/uL Lymphocytes Absolute Auto 1.5 1.2-4.9 X10*3/u L Monocytes Absolute Auto 0.5 0.1-1.2 X10*3/uL Eosinophils Absolute Auto 0.7 0.0-0.4 X10*3/u L Basophils Absolute Auto 0.1 0.0-0.2 X10*3/uL NRBC Abs Auto 0.000 0.0-0.012 X10*3/uL Comprehensive [place]. Panel Fa st Reviewed date:05/23/2025 03:12:01 PM Interpretation: Performing Lab:[address] [phone] Notes/Report: Sodium 142 135-145 mmol/L Potassium 4.3 3.3-5.1 mmol/L Chloride 107 96-108 mmol/L Carbon Dioxide 28 22-29 mmol/L Anion Gap 11 12-20 Blood Urea Nitrogen 10 9-16 mg/dL Creatinine 1.10 0.5-1.4 mg/dL Estimated Glomerular Filt Rate > 60 Chronic Kidney Disease: Estimated GFR < 60 mL/min/1.73m2 Severe Kidney Disease: Estimated GFR < 15 mL/min/1.73m2 Glucose Fasting 96 60-99 mg/dL Calcium 9.1 8.4-10.2 mg/dL Bilirubin Total 0.7 0.0-1.0 mg/dL Aspartate Amino Transferase 22 5-37 U/L Alanine Aminotransferase 24 0-40 U/L Total Protein 7.1 6.5-8.0 g/dL Albumin Level 4.6 3.5-5.0 g/dL Alkaline Phosphatase 88 39-117 U/L Lipid Panel Reviewed date:05/23/2025 03:12:01 PM Interpretation: Performing Lab:[address] [phone] Notes/Report: Triglycerides 105 <150 mg/dL Desirable Triglyceride: less than 150 mg/dL Borderline High Triglyceride 150-199 mg/dL High Triglyceride: 200-499 mg/dL Very High Triglyceride: greater than or equal to 5OO mg/dL Cholesterol 150 <200 mg/dL Desirable Cholesterol: less than 200 mg/dL Borderline High Cholesterol: 200-239 mg/dL High Cholesterol: greater than 239 mg/dL LDL Cholesterol Calculated 84 <100 mg/dL Desirable LDL: less than 100 mg/dL Near Optimal/Above Optimal LDL: 110-129 mg/dL Borderline High LDL: 130-159 mg/dL High LDL: 160-189 mg/dL Very High LDL: greater than or equal to 190 mg/dL HDL Cholesterol 45 >40 mg/dL Desirable HDL: greater than 40 mg/dL Note: This HDL assay may give artificially low results in patients with liver disease. Prostate Specific Antigen Reviewed date:05/23/2025 03:12:01 PM Interpretation: Performing Lab:[address] [phone] Notes/Report: Prostate Specific Antigen 4.86 <0.05-4.0 ng/mL PSA methodology: Boyce Alinity i Chemiluminescent Microparticle Immunoassay (CMIA) Erythrocyte Sedimentation Ra te (Not yet reviewed by provider) Interpretation: Performing Lab:[address] [phone] Notes/Report: Erythrocyte Sedimentation Rate 7 0-15 MM/HR Patients with polycythemia and many hemoglobin abnormalities may have depressed sed rates whereas patients with anemia may have elevated sed rates. Reason For Referral Reason Evaluate and Treat [...] > Patient went to Urgent care at [facility] and was seen and treated. Referral Priority Routine Medications Medication SIG (Take, Route, Frequency, Duration) [...] 1 INHALA TION ORALLY TWICE DAILY Active Immunizations Vaccine Route Administration Date Status Comme nts Influenza, quad IM Intramuscular 09/24/2023 Administered Enubila COVID-19 12+ Unknown 08/18/2024 Administered Fluzone High-Dose (HD-IIV3) Unknown 08/18/2024 Administered COVID 19 Moderna Unknown 11/02/2021 Administered Flu-IIv4pf Unknown 08/02/2021 Administered Flu-IIv4pf Unknown 08/07/2018 Administered COVID 19 Moderna Unknown 01/12/2021 Administered COVID 19 Moderna Unknown 02/09/2021 Administered Flu-IIv4pf Unknown 07/22/2019 Administered Social History Tobacco Use: Social History Observation [...] Never (0 point) Points 2 Interpretation Negative Problems Problem Type SNOMED Code ICD Code Onset Dates Problem Status W/U Status Risk Notes Problem 251573248 Overweight (E66.3) Active confirmed He has lost 13 pounds since last fall. He is now in the overweight category. We discussed continuing the weight loss through healthy diet and regular activity. Problem 539532677798897 Obesity (BMI 30.0-34.9) (E66.9) Active confirmed His weight is stable. We reviewed his diet and nutrition and weight loss strategy. We made a plan to lose weight at a rate of one half of a pound per week. Problem 210130897 Mixed hyperlipidemia (E78.2) Active confirmed His lipids are in the target range. I recommended a healthy Mediterranean diet and regular physical activity combined with weight loss. Problem 566904585635520 Lumbago with sciatica, right side (M54.41) Active confirmed The acute back pain has resolved and he is going to return to the activities of daily life. Problem 477027278 Lumbago with sciatica, left side (M54.42) Active confirmed He continues t o have intermittent periods of mild low back pain. It is not hurting him today. He is avoiding heavy lifting and undue exertion. Problem Benign prostatic hyperplasia (132021284) BPH (benign prostatic hyperplasia) (N40.0) Active confirmed He rises from sleep once or twice a night. We have discussed lifestyle modifications he can make to reduce nocturia. Problem 6273830 Psoriasis (L40.9) Active confirmed His psoriasis is mild and controlled with topical medications. No change in his regimen as needed.I have given him triamcinolone. Problem 26221798 Sleep apnea, unspecified type (G47.30) Active confirmed He says he is no longer using his CPAP as he doesn't think it is effective. He denies any snoring or daytime somnolence. Problem 704719407 Diverticulitis (K57.92) Active confirmed He will finish the antibiotics. He will resume his normal activities. He will be seen in follow-up in 14 days. A clinical diagnosis of diverticulitis seems appropriate and he continues to improve. Problem 207822751 Dyspepsia (R10.13) Active confirmed He will continue to use omeprazole as needed combined with a liquid antacid. His heartburn and dyspepsia are well controlled today. Problem 056012794 Rising PSA level (R97.20) Active confirmed His PSA in May 2024 was 2.48, and August 2024 it was 3.64, on May 20, 2025 it is 4.86. On his next phlebotomy he will have a PSA and free PSA and if it continues to rise he will be examined and referred to urology. Problem 510311144 Moderate asthma without complication, unspecified whether persistent (J45.909) Active confirmed He is breathing comfortably today without wheezing. He is compliant with all his medications. Problem Carpal tunnel syndrome (45000611) Carpal tunnel syndrome, bilateral (G56.03) Active confirmed Problem 411496882 Age-related incipient cataract, unspecified laterality (H25.099) Active confirmed I did see and examine this gentleman today. He is a good candidate for cataract surgery. He has no contraindicatio ns. He is healthy and well. He is medically cleared for cataract surgery in the near future. Vital Signs Heart Rate 61 /min 06/13/2025 Temperature 98 degrees Fahrenheit 06/13/2025 Blood pressure diastolic 75 mm Hg 06/13/2025 Height 68 in 06/13/2025 Blood pressure systolic 130 mm Hg 06/13/2025 Weight 204 lbs 06/13/2025 BMI 31.01 kg/m2 06/13/2025 Encounters Encounter Location Date Provider Diagnosis Carlton Alonzo III, MD [address] [place] [address] [place] [address] 01/17/2025 Carlton Alonzo Sleep apnea, unspeci fied type G47.30 ; Obesity (BMI 30.0-34.9) E66.9 ; BPH (benign prostatic hyperplasia) N40.0 ; Psoriasis L40.9 ; Mixed hyperlipidemia E78.2 and Moderate asthma without complication, unspecified whether persistent J45.909 Carlton Alonzo III, MD [address] [place] [address] [place] [address] 05/23/2025 Carlton Alonzo Sleep apnea, unspeci fied type G47.30 ; Mixed hyperlipidemia E78.2 ; Psoriasis L40.9 ; Dyspepsia R10.13 ; Moderate asthma without complication, unspecified whether persistent J45.909 ; Carpal tunnel syndrome, bilateral G56.03 and BPH (benign prostatic hyperplasia) N40.0 Carlton Alonzo III, MD [address] [place] [address] [place] [address] 06/13/2025 Carlton Alonzo Sleep apnea, unspeci fied type G47.30 ; Rising PSA level R97.20 ; Mixed hyperlipidemia E78.2 ; BPH (benign prostatic hyperplasia) N40.0 ; Psoriasis L40.9 and Moderate asthma without complication, unspecified whether persistent J45.909 Carlton Alonzo III, MD [address] [place] [address] DR [place], [place] [address] 03/03/2025 Carlton Alonzo Assessments Encounter Date Diagnosis (ICD Code) Assessment Notes Treat ment Notes Treatment Clinical Notes 01/17/2025 Obesity (BMI 30.0-34.9) (ICD-10 - E66.9) His weight is stable. We reviewed his diet and nutrition and weight loss strategy. We made a plan to lose weight at a rate of one half of a pound per week. 01/17/2025 Sleep apnea, unspecified type (ICD-10 - G47.30) He says he is no longer using his CPAP as he doesn't think it is effective. He denies any snoring or daytime somnolence. 05/23/2025 Mixed hyperlipidemia (ICD-10 - E78.2) His lipids are in the target range. I recommended a healthy Mediterranean diet and regular physical activity combined with weight loss. 05/23/2025 Sleep apnea, unspecified type (ICD-10 - G47.30) He says he is no longer using his CPAP as he doesn't think it is effective. He denies any snoring or daytime somnolence. 06/13/2025 Sleep apnea, unspecified type (ICD-10 - [...] will be examined and referred to urology. 01/17/2025 BPH (benign prostati c hyperplasia) (ICD-10 - N40.0) He arises from sleep about once a night. We have discussed lifestyle modifications he could make to reduce his nocturia. 05/23/2025 Psoriasis (ICD-10 - L40.9) His psoriasis is mild and controlled with topical medications. No change in his regimen as needed.I have given him triamcinolone. 06/13/2025 Mixed hyperlipidemia (ICD-10 - E78.2) His lipids are in the target range. I recommended a healthy Mediterranean diet and regular physical activity combined with weight loss. 01/17/2025 Psoriasis (ICD-10 - L40.9) His psoriasis is mild and controlled with topical medications. No change in his regimen as needed.I have given him triamcinolone. 05/23/2025 Dyspepsia (ICD-10 - R10.13) He will continue to use omeprazole as needed combined with a liquid antacid. His heartburn and dyspepsia are well controlled today. 06/13/2025 BPH (benign prostati c hyperplasia) (ICD-10 - N40.0) He rises from sleep once or twice a night. We have discussed lifestyle modifications he can make to reduce nocturia. 01/17/2025 Mixed hyperlipidemia (ICD-10 - E78.2) His lipids are in the target range. I recommended a healthy Mediterranean diet and regular physical activity combined with weight loss. 05/23/2025 Moderate asthma without complication, unspecified whether persistent (ICD-10 - J45.909) He is breathing comfortably today without wheezing. He is compliant with all his medications. 06/13/2025 Psoriasis (ICD-10 - L40.9) His psoriasis is mild and controlled with topical medications. No change in his regimen as needed.I have given him triamcinolone. 01/17/2025 Moderate asthma without complication, unspecified whether persistent (ICD-10 - J45.909) He is breathing comfortably today without wheezing. He is compliant with all his medications. 05/23/2025 Carpal tunnel syndrome, bilateral (ICD-10 - G56.03) 06/13/2025 Moderate asthma without complication, unspecified whether persistent (ICD-10 - J45.909) He is breathing comfortably today without wheezing. He is compliant with all his medications. 05/23/2025 BPH (benign prostati c hyperplasia) (ICD-10 - N40.0) Plan Of Treatment Pending Test Test Name Order Date PROFILE, FASTING (COMPREHENSIVE METABOLI C) 01/21/2023 PROFILE, FASTING (COMPREHENSIVE METABOLI C) 09/24/2022 PROFILE, FASTING (COMPREHENSIVE METABOLI C) 01/17/2025 PROFILE, FASTING (COMPREHENSIVE METABOLI C) 02/11/2024 PROFILE, FASTING (COMPREHENSIVE METABOLI C) 09/24/2023 LIPID PANEL 01/21/2023 PSA, TOTAL 09/24/2022 PSA, TOTAL 01/17/2025 PSA, TOTAL 02/11/2024 PSA, TOTAL 09/24/2023 CBC w DIFF 09/24/2023 CBC w DIFF 01/21/2023 CBC w DIFF 09/24/2022 CBC w DIFF 01/17/2025 SED RATE (ESR) 06/13/2025 CBC WITH AUTO DIFF 02/11/2024 Erythrocyte Sedimentation Rate Lipid Panel 02/11/2024 Lipid Panel 09/24/2023 Lipid Panel 09/24/2022 Lipid Panel 01/17/2025 PSA Free and Total 05/23/2025 PSA Free and Total 06/13/2025 CA echo transthoracic complete Next Appt Details Provider Name:Carlton Alonzo , 07/28/2025 09:00:00 AM, [address] [place] [address] [address], [place], [address], Provider Name:Carlton Alonzo , 01/18/2026 04:00:00 PM, [address] [place] [address] [address], [place], [address], Insurance Providers Payer Name Payer Address Payer Phone Subscriber Number Group Number Insured Name Patient Relationship to Insured Coverage Start Date Coverage End Date MEDICARE NGS [address] [place] [address] [id number] Darvin Finn Self - patient is the insured [facility] [address] [place], [place] [id number] Darvin Finn Self - patient is the insured Medical (General) History Medical History History ICD Code Psoriasis L40.9 Dyspepsia R10.13 obesity sleep apnea asthma mixed hyperlipidemia Cataracts Left shoulder pain M25.512 Left shoulder pain Surgical History Surgery Date(Month/Year) left cataract surgery 10/2021 colonoscopy, [facility] fractured left tibia and fibula 2003 Tonsillectommy appendectomy vasectomy 2001
--- OUTSIDE RECORDS SUMMARY | 2025-07-21 11:34 | XMS_ITS | Patient Health Record ---
Author Organization [facility] Address [address] [place] [address] Care Team Providers Care Oil And Gas Superintendent Name Role Phone Aiden Virk Primary Care Provider Carlton Baez [phone] Reason For Referral No Information Medications Medication SIG (Take, Route, Fr equency, Duration) Notes Start Date End Date Status ProAir HFA 10/27/2024 10/27/2024 Active Simvastatin 10/27/2024 10/27/2024 Active MoviPrep 100 GM as directed Orally once for 1 dose 07/22/2012 Active Symbicort 10/27/2024 10/27/2024 Active Problems Problem Type SNOMED Code ICD Code Onset Dates Problem Status W/U Status Risk Notes Problem Screening for malignant neoplasm of colon (757927593) Screening for colorectal cancer (V76.51) Active confirmed Plan Of Treatment Future Test Test Name Order Date COLONOSCOPY 07/01/2012 Insurance Providers Payer Name Payer Address Payer Phone Subscriber Number Group Number Insured Name Patient Relationship to Insured Coverage Start Date Coverage End Date [facility] [address] [place] [phone] [id number] GEMINI ARTHUR Self - patient is the insured Medical (General) History Medical History History ICD Code Denies OR,DM,CVA,renal disease Asthma Hyperlipidemia Surgical History Surgery Date(Month/Year) Appendix Broken leg
[2025-07-22 12:09] LABS: Free Prostate Spec Ag 0.4 ng/mL; Percent Free Prostate Spec Ag 10 % (calc) (>25)
== END 2025-07-21 09:44 | disposition home or self-care (01) ==
LOC: HO.10HDL 09:43
PROVIDERS: Visit Provider Internal Medicine Medical Oncology
DX: N40.0 Benign prostatic hyperplasia without lower urinary tract symptoms (principal); K57.92 Diverticulitis of intestine, part unspecified, without perforation or abscess without bleeding
CPT/HCPCS: 36415; 84154; 85652